=== PATIENT | male | born 1960 | race Caucasian/White ===

== ENCOUNTER 2019-01-05 11:53 | Inpatient (IN) ==
[2019-01-05] MEDS ORDERED: ASPIRIN CHEW 324 MG PO STA (12:19)
--- NOTE | 2019-01-05 12:40 | XRay Report ---
XR chest 1V portable CLINICAL HISTORY: 58 years-old Male presenting with Chest Pain. TECHNIQUE: Portable upright AP view of the chest was obtained. COMPARISON: None. FINDINGS: Cardiomediastinal silhouette normal. No focal opacity. No large effusion or pneumothorax. Osseous str uctures normal. Upper abdomen normal. IMPRESSION: 1. No acute cardiopulmonary disease. Electronically signed by: Christopher Harrington M.D. 01/05/2019 12:39 PM
[2019-01-05 12:43] LABS: Hematocrit (blood only) 41.3 % (42-52); Hemoglobin 14.7 g/dL (14.0-18.0); Mean Corpuscular Hemoglobin 31.3 pg (25-34); Mean Corpuscular Hgb Conc 35.6 g/dL (32-36); Mean Corpuscular Volume 87.9 fL (80-100); Mean Platelet Volume 11.6 fL (7.4-10.4); Platelet Count 121 K/uL (130-400); RDW Coefficient of Variation 13.6 % (11.5-14.5); White Blood Count 11.47 K/uL (4.8-10.8)
[2019-01-05 12:53] LABS: Partial Thromboplastin Ratio 0.9; Partial Thromboplastin Time 25.6 Seconds (21.0-31.0); Prothrombin Time 10.4 Seconds (9.0-12.0)
[2019-01-05 12:57] LABS: Albumin Level 3.5 gm/dl (3.4-5.0); BUN Creatinine Ratio 13.5 (10-20); Calcium 9.5 mg/dl (8.5-10.1); Creatinine Clr Calc Pharmacy 92.8 ml/min; Est GFR (Non-African American) 73.3; Potassium 4.4 mmol/L (3.5-5.1)
[2019-01-05 12:59] LABS: Albumin Globulin Ratio 0.7 (0.9-2); Bilirubin,Total 1.2 mg/dl (0.2-1); Globulin 4.9 gm/dl (2.5-4.0); Total Protein 8.4 gm/dl (6.4-8.2)
[2019-01-05 13:22] LABS: Basophils # (auto) 0.04 K/uL (0-0.2); Basophils % (auto) 0.3 %; Eosinophils # (auto) 0.02 K/uL (0-0.5); Eosinophils % (auto) 0.2 %; Immature Granulocytes # (auto) 0.02 K/uL (0.00-0.02); Immature Granulocytes % (auto) 0.2 %; Lymphocytes # (auto) 8.57 K/uL (1.2-3.4); Lymphocytes % (auto) 74.7 %; Monocytes % (auto) 5.2 %; Neutrophils # (auto) 2.22 K/uL (1.4-6.5); Neutrophils % (auto) 19.4 %; Smudge Cells Present
--- NOTE | 2019-01-05 17:51 | History & Physical Report ---
Date of Service January 05, 2019 Assessment & Plan (1) Chest pain: This is a 58-year-old male with significant past medical history of T2 DM, HTN, HLD, chronic LBBB, tobacco abuse who presents to [facility] ED secondary to chest pain x1 day. He elicits he woke up at 4 AM with stabbing left-sided chest pain that radiated to left shoulder. In ED initial EKG revealed chronic LBBB with inferior T wave inversions. Initial troponin WNL. He did receive 3.5 mg aspirin. He was asymptomatic upon arrival and continues to be without chest pain. Lab work-up was significant for mild elevated WBC 11.47 with predominance in lymphocytes, smudge cell noted and flow cytometry ordered. CMP relatively unremarkable except for hyperglycemia, T bili 1.2, NA 132. Pt with risk factors of HTN, HLD, Tobacco abuse and + FH. admit to telemetry cycle troponin, repeat ECG fasting lipid panel, A1C in a.m. Exercise stress test/echo in a.m. to r/o ischemia continue current regimen of ASA, lisinopril, coreg, statin D/C Meloxicam in setting of ACS work up (2) Diabetes: poorly controlled, last A1C 8.8 on metformin and glimepiride hold outpt meds Lantus/Novolog per protocol given risk factors and FH would recommend strict DM control consult clinical nurse educator (3) LBBB (left bundle branch block): chronic as above (4) Lymphocytosis: new abnormal CBC with elevated absolute lymphocytosis +Smudge cell present Flow cytometry pending Dr. Valles spoke to Dr. Dolye who recommends outpt HEME/ONC Follow up/Referral (5) HTN (hypertension): blood pressure controlled on coreg, lisinopril monitor (6) HLD (hyperlipidemia): continue statin fasting lipid panel in a.m. (7) Hypertriglyceridemia: Last triglyceride level 1093 11/07/18 on fenofibrate fasting lipid panel in a.m. need to stricter control (8) Tobacco abuse: smoking cessation encouraged nicotine patch ordered (9) DVT prophylaxis: SCD/TEDS Disposition: admit to PCU, discharge home when able Follow up: PCP Dr. Stockton upon discharge, would recommend MT establishment for DM control Pt seen and examined in collaboration with Dr. Valles, please see addendumm History of Present Illness Chief Complaint: Chest pain x 1 day. Primary Care Provider: Miguel Joseph MD This is a 58-year-old male with significant past medical history of T2 DM, HTN, HLD, chronic LBBB, tobacco abuse who presents to [facility] ED secondary to chest pain x1 day. He elicits he woke up at 4 AM with stabbing left-sided chest pain that radiated to left shoulder. Pain would wax and wane, "sharp jabs," worse with rolling over, 10/10 at its worst, lasted for several minutes, never had in the past, nothing made better. Symptoms resolved within a few minutes, but he was left with a dull left-sided ache. He opted to get out of bed around 6AM and walked around in hopes it would be resolved. Symptoms did not resolve; therefore he opted to not go to work and go back to bed for a few hours. He slept an additional 2 to 3 hours, woke up with continued dull ache. He called PCP who recommended to seek ED. During episodes he also felt diaphoretic and slightly short of breath which had him more concerned. He checked blood sugar which was in 250s. Typically his blood sugars are between 1 60-1 90. He further elicits over the past week he has felt, "not right." Last weekend he was very fatigued doing very little activity which was unusual for him. He de nies any recent illness, fever, chills, lightheadedness, dizziness, syncope, chest pain with exertion, shortness of breath with exertion, cough, hemoptysis, nausea, vomiting, abdominal pain, change in bowel or urinary habits. His appetite has otherwise been normal. He has been taking his medications as prescribed. He is a 1 to 2 pack/day smoker for the past 45 years. He does have significant family history of father and brother both having MIs in their 50s. In ED initial EKG revealed chronic LBBB with inferior T wave inversions. Initial troponin WNL. He did receive 3.5 mg aspirin. He was asymptomatic upon arrival and continues to be without chest pain. Lab work-up was significant for mild elevated WBC 11.47 with predominance in lymphocytes, smudge cell noted and flow cytometry ordered. CMP relatively unremarkable except for hyperglycemia, T bili 1.2, NA 132. Pt with risk factors of HTN, HLD, Tobacco abuse and + FH. Allergies Allergy/AdvReac Type Severity Reaction Status Date / Time Sulfa (Sulfonamide AdvReac Intermediate Rash Unverified 01/05/19 13:11 Antibiotics) Home Medications Home Medications Medication Instructions Recorded Confirmed Type Potassium 99mg 198 mg PO HS 01/05/19 01/05/19 History Release 1 cap PO QAM 01/05/19 01/05/19 History aspirin 81 mg PO HS 01/05/19 01/05/19 History carvedilol 12.5 mg PO BID 01/05/19 01/05/19 History cholecalciferol (vitamin D3) 2,000 unit PO QAM 01/05/19 01/05/19 History [Vitamin D3] cyanocobalamin (vitamin B-12) 1,000 mcg PO HS 01/05/19 01/05/19 History [Vitamin B-12] fenofibrate 160 mg PO QDD 01/05/19 01/05/19 History glimepiride 4 mg PO QDB 01/05/19 01/05/19 History lisinopril 10 mg PO QAM 01/05/19 01/05/19 History meloxicam 15 mg PO QAM 01/05/19 01/05/19 History metformin 1,000 mg PO BIDM 01/05/19 01/05/19 History omeprazole magnesium [Prilosec OTC] 20 mg PO QAM 01/05/19 01/05/19 History pravastatin 20 mg PO QAM 01/05/19 01/05/19 History Past Med/Surg History Medical History (Updated 01/05/19 @ 18:19 by Alysa Bradshaw PA-C) Diabetes History of melanoma Removed from ear HLD (hyperlipidemia) HTN (hypertension) Hypertriglyceridemia LBBB (left bundle branch block) Surgical History History of arthroscopy of right knee History of bursectomy History of local excision of skin lesion History of lumbar discectomy Family History (Updated 01/05/19 @ 18:00 by Alysa Bradshaw PA-C) Father Heart disease, Onset Age: 50 Brother Coronary heart disease, Onset Age: 50 Social History (Updated 01/05/19 @ 18:01 by Alysa Bradshaw PA-C) Preferred Language: Maltese Communication Ability: Effective marital status: Current Living Situation: Spouse Smoking Status: Current every day smoker Tobacco Type: cigarettes ; Years Smoked: 45 ; Cigarettes Per Day: 20-40 ; Hx Alcohol Use: No Hx Substance Use: No Review of Systems Review of Systems: All systems reviewed & are unremarkable except as noted in HPI & below Physical Exam Physical Exam: Constitutional: WD/WN, vitals as above, NAD, sitting up in bed, pleasant, conversing easily Head: Normocephalic, Atraumatic Eyes: PERRL, conjunctivae normal, anicteric sclerae ENMT: external ear and nose normal, oropharynx normal Neck: trachea midline, no thyromegaly normal visual inspection Respiratory: normal respiratory effort, lungs clear to auscultation, no wheeze, rales, rhonchi. Normal insp/exp effort, no accessory muscle use Cardiovascular: RRR, no murmur, no edema Vessels: no JVD or carotid bruit Chest: normal inspection of chest Abdomen: normal bowel sounds, soft, nontender, no hepatosplenomegaly Musculoskeletal: no cyanosis or clubbing, extremities motor strength 5/5 Skin: no rashes, warm and dry normal turgor Neurologic: PERRL, EOMI, accommodation nl, no face palsy, no dysarthria CN's II-XI intact bilaterally and moves all extremities Psychiatric: A+Ox3, euthymic affect Lymphatic: no cervical or axillary lymphadenopathy : deferred Results & Data Vital Signs (Past 12 Hours) Vital Signs Temp Pulse Pulse Resp BP BP Pulse Ox 01/05/19 17:00 84 20 124/80 97 01/05/19 15:53 86 20 107/63 01/05/19 13:53 18 114/72 96 01/05/19 12:06 36.9 C 89 20 139/79 98 Laboratory Results Short CBC 01/05/19 Range/Units 12:23 WBC 11.47 H (4.8-10.8) K/uL Hgb 14.7 (14.0-18.0) g/dL Hct 41.3 L (42-52) % Plt Count 121 L (130-400) K/uL Blood Smear Review BMP 01/05/19 12:23 Sodium 132 L Potassium 4.4 Chloride 99 Carbon Dioxide 28 BUN 15 Creatinine 1.11 Glucose 285 H Calcium 9.5 Liver Function 01/05/19 Range/Units 12:23 Total Bilirubin 1.2 H (0.2-1) mg/dl AST 22 (15-37) U/L ALT 37 (12-78) U/L Alkaline Phosphatase 101 (45-117) U/L Albumin 3.5 (3.4-5.0) gm/dl Diagnostic Findings CXR:IMPRESSION: 1. No acute cardiopulmonary disease. Medications Administered Discontinued Medications Aspirin (Aspirin) 324 mg PO NOW STA Stop: 01/05/19 12:20 Last Admin: 01/05/19 12:34 Dose: 324 mg Documented by: [id number] ECG Rate (beats per minute): 86 Findings: + LBBB and + T-wave inversion (Inferior) Code Status & VTE Plan Code Status Full Code VTE Prophylaxis Plan VTE Prophylaxis will be ordered: Yes Supervising Physician Co-Signing Physician Notes Attending addendum: The patient was seen and examined in the emergency room This is a 58-year-old male with significant past medical history of T2 DM, HTN, HLD, chronic LBBB, tobacco abuse who presents to [facility] ED secondary to chest pain x1 day. He elicits he woke up at 4 AM with stabbing left-sided chest pain that radiated to left shoulder. 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 Doyle. Flow cytometry has been sent Outpatient rheumatology appointment Agree with assessment and plan as outlined above by MAYCOL Pereira DR (1) Chest pain Chest pain type: unspecified Qualified Code(s): R07.9 - Chest pain, unspecified
--- NOTE | 2019-01-05 17:56 | Emergency Department Note ---
Entered by Miguel Varela acting as a scribe for Padilla Wilson DO History of Present Illness General Chief complaint: Chest Pain Stated complaint: CHEST PAIN Time Seen by Provider: 01/05/19 12:14 Source: patient History of Present Illness Provider complaint: chest pain Onset (ago): hour(s) 8 Location: chest and left Radiation: other (into shoulder) Pain Consistency: + intermittent Maximum Pain Intensity: 5 Quality: + sharp Exacerbated By: + movement Associated symptoms: + denies other symptoms and + cough The patient is a 58 y/o male who presents to the emergency department for evaluation of intermittent left sided sharp chest pain that woke him up from sleep 8 hours ago. The patient states that the pain comes in waves and only last for a few seconds at a time. He notes that the pain is in the ribcage area and that rest did seem to help relieve the pain. Around 3 hours ago the patient reports pain down his left arm. The patient states he has a LBBB and family history of heart disease. He notes he has a minor cough and did take his daily aspirin today. The patient denies any other symptoms. Home Medications Home Medications Medication Instructions Recorded Confirmed Type Potassium 99mg 198 mg PO HS 01/05/19 01/05/19 History Release 1 cap PO QAM 01/05/19 01/05/19 History aspirin 81 mg PO HS 01/05/19 01/05/19 History carvedilol 12.5 mg PO BID 01/05/19 01/05/19 History cholecalciferol (vitamin D3) 2,000 unit PO QAM 01/05/19 01/05/19 History [Vitamin D3] cyanocobalamin (vitamin B-12) 1,000 mcg PO HS 01/05/19 01/05/19 History [Vitamin B-12] fenofibrate 160 mg PO QDD 01/05/19 01/05/19 History glimepiride 4 mg PO QDB 01/05/19 01/05/19 History lisinopril 10 mg PO QAM 01/05/19 01/05/19 History meloxicam 15 mg PO QAM 01/05/19 01/05/19 History metformin 1,000 mg PO BIDM 01/05/19 01/05/19 History omeprazole magnesium [Prilosec OTC] 20 mg PO QAM 01/05/19 01/05/19 History pravastatin 20 mg PO QAM 01/05/19 01/05/19 History Allergies Allergy/AdvReac Type Severity Reaction Status Date / Time Sulfa (Sulfonamide AdvReac Intermediate Rash Unverified 01/05/19 13:11 Antibiotics) Past Med/Surg History Medical History (Updated 01/05/19 @ 17:04 by Miguel Varela) Diabetes LBBB (left bundle branch block) Family History Other Heart disease Social History Smoking Status: Current every day smoker Review of Systems See HPI for pertinent positives & negatives. and A total of 10 systems reviewed and were otherwise negative Physical Exam Vital Signs Vital Signs - 24 hr 01/05/19 12:06 01/05/19 12:19 01/05/19 13:53 Temperature 36.9 C Temperature Source Oral Pulse Rate 89 Pulse Rate [Left Apical] Pulse Rhythm Regular Pulse Rhythm [Left Apical] Regular Pulse Strength [Left Apical] Normal Respiratory Rate 20 18 Respiratory Effort / Characteristics Non-Labored Spontaneous Non-Labored Spontaneous Respiratory Depth Normal Normal Respiratory Pattern Regular Blood Pressure 139/79 Blood Pressure [Right Arm] 114/72 Blood Pressure Mean 99 Blood Pressure Mean [Right Arm] 86 Blood Pressure Position Sitting Blood Pressure Position [Right Arm] Lying Pulse Oximetry 98 96 Oxygen Delivery Method Room Air Room Air Room Air Sepsis Recent Fever Within 48 Hours No Sepsis Action Taken by Nursing No Action Required 01/05/19 15:53 01/05/19 17:00 Temperature Temperature Source Pulse Rate Pulse Rate [Left Apical] 86 84 Pulse Rhythm Pulse Rhythm [Left Apical] Pulse Strength [Left Apical] Respiratory Rate 20 20 Respiratory Effort / Characteristics Respiratory Depth Respiratory Pattern Blood Pressure Blood Pressure [Right Arm] 107/63 124/80 Blood Pressure Mean Blood Pressure Mean [Right Arm] 77 94 Blood Pressure Position Blood Pressure Position [Right Arm] Pulse Oximetry 97 Oxygen Delivery Method Sepsis Recent Fever Within 48 Hours Sepsis Action Taken by Nursing GENERAL: Patient is awake, alert, and in no acute distress.Patient is resting comfortably and showing no signs of anxiety EYES: The conjunctivae are clear. The pupils are round and reactive. EARS, NOSE, MOUTH AND THROAT: The nose is without any evidence of any deformity. Mucous membranes are moist.Tongue is midline NECK: The neck is nontender and supple. RESPIRATORY: Normal respiratory effort is noted. There is no evidence of wheezing rhonchi or rales to auscultation. CARDIOVASCULAR: Regular rate and rhythm noted. There no murmurs rubs or gallops normal S1 normal S2 GASTROINTESTINAL: The abdomen is soft. Bowel sounds are present in all quadrants. Abdomen is nontender. MUSCULOSKELETAL/EXTREMITIES: There is no evidence of gross deformity. Full range of motion is noted in the hips and shoulders. SKIN: There is no obvious evidence of any rash. There are no petechiae, pallor or cyanosis noted. NEUROLOGIC: Patient is awake alert and oriented x3. Course Course 1215: Past medical records reviewed. The patient was evaluated in room C05. A complete history and physical exam was performed. 1234: The patient was placed in observations status Observation note: Indication: Chest pain to rule out acute coronary syndrome Patient, with heart disease Family History, was first seen at 1215 hrs and the observation time began at 1234 hrs and was necessary in order to determine his chest pain and avoid unnecessary admission. Upon re-evaluation, 1650 hours of observation revealed that the patient should be admitted due to his risk factors and results. Heart score was calculated at bedside with patient was is a 5. 1650: I checked on the patient and updated him on his results. The patient and I discussed the treatment plan and he verbally agreed and understood. 1700: I spoke with Alysa Bradshaw for Dr. Lemos hospitalist. They will evaluate for further management. Administered Medications Discontinued Medications Aspirin (Aspirin) 324 mg PO NOW STA Stop: 01/05/19 12:20 Last Admin: 01/05/19 12:34 Dose: 324 mg Documented by: [id number] Medical Decision Making Differential Diagnosis the differential was considered includes acute myocardial infarction, acute coronary syndrome, myocarditis, pericarditis, pericardial effusions /tamponad, esophageal perforation, thoracic aortic dissection, pulmonary embolism, pneu monia, pneumothorax, pancreatitis, shingles, acute cholecystitis, perforated abdominal viscus. Medical Records Attestation: I reviewed the patient's medical records. Home Medications Current Medication List: was personally reviewed by me Laboratory Data Attestation: I reviewed the patient's lab results. Result diagrams: 01/05/19 12:23 01/05/19 12:23 Lab Results 01/05/19 01/05/19 01/05/19 Range/Units 12:23 12:23 12:23 WBC 11.47 H (4.8-10.8) K/uL RBC 4.70 (4.7-6.1) M/uL Hgb 14.7 (14.0-18.0) g/dL Hct 41.3 L (42-52) % MCV 87.9 (80-100) fL MCH 31.3 (25-34) pg MCHC 35.6 (32-36) g/dL RDW Std Deviation 44.0 (36.4-46.3) fL RDW Coeff of Rolo 13.6 (11.5-14.5) % Plt Count 121 L (130-400) K/uL MPV 11.6 H (7.4-10.4) fL Immature Gran % (Auto) 0.2 % Neut % (Auto) 19.4 % Lymph % (Auto) 74.7 % [place] % (Auto) 5.2 % Eos % (Auto) 0.2 % Baso % (Auto) 0.3 % Immature Gran # (Auto) 0.02 (0.00-0.02) K/uL Neut # (Auto) 2.22 (1.4-6.5) K/uL Lymph # (Auto) 8.57 H (1.2-3.4) K/uL [place] # (Auto) 0.60 H (0.11-0.59) K/uL Eos # (Auto) 0.02 (0-0.5) K/uL Baso # (Auto) 0.04 (0-0.2) K/uL Smudge Cells Present Blood Smear Review PT 10.4 (9.0-12.0) Seconds INR 1.0 (0.9-1.1) APTT 25.6 (21.0-31.0) Seconds PTT Ratio 0.9 Sodium 132 L (136-145) mmol/L Potassium 4.4 (3.5-5.1) mmol/L Chloride 99 (98-107) mmol/L Carbon Dioxide 28 (21-32) mmol/L Anion Gap 6.0 (3-11) BUN 15 (7-18) mg/dl Creatinine 1.11 (0.6-1.4) mg/dl Est Cr Clr Drug Dosing 92.8 ml/min Est GFR ( Amer) 85.0 Est GFR (Non-Af Amer) 73.3 BUN/Creatinine Ratio 13.5 (10-20) Glucose 285 H (70-99) mg/dl Calcium 9.5 (8.5-10.1) mg/dl Total Bilirubin 1.2 H (0.2-1) mg/dl AST 22 (15-37) U/L ALT 37 (12-78) U/L Alkaline Phosphatase 101 (45-117) U/L POC Troponin I (0-0.045) ng/ml Total Protein 8.4 H (6.4-8.2) gm/dl Albumin 3.5 (3.4-5.0) gm/dl Globulin 4.9 H (2.5-4.0) gm/dl Albumin/Globulin Ratio 0.7 L (0.9-2) Lipase 96 (73-393) U/L 01/05/ Range/Units 12:34 WBC (4.8-10.8) K/uL RBC (4.7-6.1) M/uL Hgb (14.0-18.0) g/dL Hct (42-52) % MCV (80-100) fL MCH (25-34) pg MCHC (32-36) g/dL RDW Std Deviation (36.4-46.3) fL RDW Coeff of Rolo (11.5-14.5) % Plt Count (130-400) K/uL MPV (7.4-10.4) fL Immature Gran % (Auto) % Neut % (Auto) % Lymph % (Auto) % [place] % (Auto) % Eos % (Auto) % Baso % (Auto) % Immature Gran # (Auto) (0.00-0.02) K/uL Neut # (Auto) (1.4-6.5) K/uL Lymph # (Auto) (1.2-3.4) K/uL [place] # (Auto) (0.11-0.59) K/uL Eos # (Auto) (0-0.5) K/uL Baso # (Auto) (0-0.2) K/uL Smudge Cells Blood Smear Review PT (9.0-12.0) Seconds INR (0.9-1.1) APTT (21.0-31.0) Seconds PTT Ratio Sodium (136-145) mmol/L Potassium (3.5-5.1) mmol/L Chloride (98-107) mmol/L Carbon Dioxide (21-32) mmol/L Anion Gap (3-11) BUN (7-18) mg/dl Creatinine (0.6-1.4) mg/dl Est Cr Clr Drug Dosing ml/min Est GFR ( Amer) Est GFR (Non-Af Amer) BUN/Creatinine Ratio (10-20) Glucose (70-99) mg/dl Calcium (8.5-10.1) mg/dl Total Bilirubin (0.2-1) mg/dl AST (15-37) U/L ALT (12-78) U/L Alkaline Phosphatase (45-117) U/L POC Troponin I < 0.03 (0-0.045) ng/ml Total Protein (6.4-8.2) gm/dl Albumin (3.4-5.0) gm/dl Globulin (2.5-4.0) gm/dl Albumin/Globulin Ratio (0.9-2) Lipase (73-393) U/L Imaging Data Radiologist's Impression: Radiology results as stated below per my review and the radiologist's interpretation: XR chest 1V portable CLINICAL HISTORY: 58 years-old Male presenting with Chest Pain. TECHNIQUE: Portable upright AP view of the chest was obtained. COMPARISON: None. FINDINGS: Cardiomediastinal silhouette normal. No focal opacity. No large effusion or pneumothorax. Osseous structures normal. Upper abdomen normal. IMPRESSION: 1. No acute cardiopulmonary disease. Electronically signed by: Christopher Harrington M.D. 01/05/2019 12:39 PM ECG Data Attestation: I personally reviewed and interpreted this ECG as follows: Indication: + chest pain Rate (beats per minute): 83 Rhythm: + normal sinus ECG Intervals/blocks: + Left bundle branch block ECG ST segments: no ST depression and no ST elevation ECG Findings: no PACs and no PVCs Comparison ECG Date: no prior available Additional Comments: Repeat done at 1547 Normal sinus rate of 86 No PVC or PAC LBBB No change from previous Blood Pressure Blood Pressure Findings: Elevated blood pressure Blood Pressure Disposition: Referred to patients primary care provider MDM Narrative The patient is a 58-year-old male who presented to the emergency department for an evaluation of chest pain. I discussed the patient's laboratory and radiographic studies with him. He was treated with aspirin in the emergency department. On subsequent reevaluation he was feeling much better. I discussed the patient's condition with him. I also discussed the limitations of the emergency department work-up for chest pain with him. Ultimately I felt the patient was more of a candidate for inpatient management. He did have a heart score that was elevated and does have a left bundle branch block pattern on EKG. It does appear that the EKG may be unchanged from previous. The patient also has an abnormal CBC with the possibility of leukemia versus lymphoma. I discussed the patient's condition with the on-call [facility] hospitalist group. They have agreed to evaluate the patient in the emergency department for further management disposition. Impression & Plan Chest pain, Abnormal EKG, Abnormal CBC Discharge Plan Visit Data Chief Complaint: Chest Pain Stated Complaint: CHEST PAIN ED Provider: Padilla Wilson Discharge Problem: Chest pain, Abnormal EKG, Abnormal CBC Patient Disposition: Being Evaluated by Hospitalist Forms Stand Alone Forms: Call Back Authorization, [facility] Prescriptions Prescriptions: No Action carvedilol 12.5 mg tablet 12.5 mg PO BID RF: 0 meloxicam 15 mg tablet 15 mg PO QAM RF: 0 cyanocobalamin (vitamin B-12) [Vitamin B-12] 1,000 mcg Tablet 1,000 mcg PO HS RF: 0 aspirin 81 mg Tablet,Delayed Release (Dr/Ec) 81 mg PO HS RF: 0 metformin 1,000 mg tablet 1,000 mg PO BIDM RF: 0 lisinopril 10 mg tablet 10 mg PO QAM RF: 0 glimepiride 4 mg tablet 4 mg PO QDB RF: 0 Prilosec OTC 20 mg Tablet,Delayed Release (Dr/Ec) 20 mg PO QAM RF: 0 fenofibrate 160 mg tablet 160 mg PO QDD RF: 0 cholecalciferol (vitamin D3) [Vitamin D3] 2,000 unit Tablet 2,000 unit PO QAM RF: 0 Potassium 99mg 198 mg PO HS RF: 0 Release 1 cap PO QAM RF: 0 pravastatin 20 mg tablet 20 mg PO QAM RF: 0 Referrals Referrals: Miguel Joseph MD [Primary Care Provider] - Discharge Problem: Chest pain Qualifiers: Chest pain type: unspecified Qualified Code(s): R07.9 - Chest pain, unspecified The scribe's documentation has been prepared under my direction and personally reviewed by me in its entirety. I confirm that the note above accurately reflects all work, treatment, procedures, and medical decision making performed by me.
[2019-01-05] MEDS ORDERED: ONDANSETRON INJ 2 MG/ML 2 ML VIAL IV PRN (19:06)
[2019-01-05] MEDS ORDERED: MAGNESIUM HYDROXIDE SUSP 30 ML UDC PO PRN (19:06)
[2019-01-05] MEDS ORDERED: ALUMINUM/MAGNESIUM SUSP 30 ML UDC PO PRN (19:06)
[2019-01-05] MEDS ORDERED: POLYETHYLENE (MIRALAX) 17 GM PACK PO PRN (19:06)
[2019-01-05] MEDS ORDERED: ACETAMINOPHEN 325 MG TAB PO PRN (19:06)
[2019-01-05] MEDS ORDERED: CARBOHYDRATES FOR HYPOGLYCEMIA PO PRN (19:06)
[2019-01-05] MEDS ORDERED: DEXTROSE 50% 50 ML SYRINGE IV PRN (19:06)
[2019-01-05] MEDS ORDERED: GLUCOSE 40% GEL 15 GM TUBE PO PRN (19:06)
[2019-01-05] MEDS ORDERED: GLUCAGON FOR INJ 1 MG VIAL SQ PRN (19:06)
[2019-01-05] MEDS ORDERED: NITROGLYCERIN SL 0.4 MG/TAB TAB SL PRN (19:06)
[2019-01-05] MEDS ORDERED: GLUCOSE 10 TABS/TUBE PO PRN (19:06)
[2019-01-05] MEDS: carvediloL 12.5 MG TAB PO SCH (20:55)
[2019-01-05] MEDS: CYANOCOBALAMIN 500 MCG TABLET (VITAMIN B-12) PO SCH (20:55)
[2019-01-05] MEDS: ASPIRIN 81 MG ECTAB PO SCH (20:55)
[2019-01-05] MEDS ORDERED: INSULIN GLARGINE SOLOSTAR 100 UNITS/ML 3 ML PEN SC SCH (21:00)
[2019-01-06 05:45] LABS: Hemoglobin 13.2 g/dL (14.0-18.0); Mean Corpuscular Hemoglobin 30.9 pg (25-34); Mean Corpuscular Hgb Conc 35.7 g/dL (32-36); Mean Corpuscular Volume 86.7 fL (80-100); Mean Platelet Volume 11.2 fL (7.4-10.4); Nucleated RBC # (auto) 0.07 K/uL (0-0); Nucleated RBC % (auto) 0.6 %; Platelet Count 108 K/uL (130-400); RDW Coefficient of Variation 13.8 % (11.5-14.5); RDW Standard Deviation 43.4 fL (36.4-46.3); Red Blood Count 4.27 M/uL (4.7-6.1); White Blood Count 10.59 K/uL (4.8-10.8)
[2019-01-06 06:19] LABS: Alanine Aminotransferase 29 U/L (12-78); Aspartate Aminotransferase 21 U/L (15-37); BUN Creatinine Ratio 12.7 (10-20); Blood Urea Nitrogen 12 mg/dl (7-18); Calcium 8.5 mg/dl (8.5-10.1); Carbon Dioxide 26 mmol/L (21-32); Chloride 104 mmol/L (98-107); Creatinine Clr Calc Pharmacy 105.3 ml/min; Est GFR (Non-African American) 86.3; Glucose 251 mg/dl (70-99); Potassium 4.1 mmol/L (3.5-5.1); Sodium 134 mmol/L (136-145)
[2019-01-06 06:22] LABS: Albumin Globulin Ratio 0.7 (0.9-2); Alkaline Phosphatase 90 U/L (45-117); Bilirubin,Total 1.1 mg/dl (0.2-1); Chol HDL Ratio 8; Cholesterol 63 mg/dl (0-200); Globulin 4.1 gm/dl (2.5-4.0); HDL Cholesterol 8 mg/dl; Total Protein 7.1 gm/dl (6.4-8.2); Triglycerides 302 mg/dl (0-150); VLDL Cholesterol 60 mg/dl
[2019-01-06] MEDS ORDERED: GLUCOSE 40% GEL 15 GM TUBE PO PRN (06:46)
[2019-01-06] MEDS ORDERED: GLUCAGON FOR INJ 1 MG VIAL SQ PRN (06:46)
[2019-01-06] MEDS ORDERED: GLUCOSE 10 TABS/TUBE PO PRN (06:46)
[2019-01-06] MEDS ORDERED: CARBOHYDRATES FOR HYPOGLYCEMIA PO PRN (06:46)
[2019-01-06] MEDS ORDERED: DEXTROSE 50% 50 ML SYRINGE IV PRN (06:46)
[2019-01-06] MEDS ORDERED: INSULIN GLARGINE SOLOSTAR 100 UNITS/ML 3 ML PEN SC SCH ×2 (06:47→21:00)
[2019-01-06] MEDS ORDERED: INSULIN GLARGINE SOLOSTAR 100 UNITS/ML 3 ML PEN SC STA (06:47)
[2019-01-06 06:49] LABS: Estimated Average Glucose 249 mg/dl; Hemoglobin A1C 10.3 % (4.5-5.6)
[2019-01-06 07:12] LABS: Basophils # (auto) 0.05 K/uL (0-0.2); Basophils % (auto) 0.5 %; Eosinophils # (auto) 0.03 K/uL (0-0.5); Eosinophils % (auto) 0.3 %; Immature Granulocytes # (auto) 0.04 K/uL (0.00-0.02); Immature Granulocytes % (auto) 0.4 %; Lymphocytes # (auto) 7.91 K/uL (1.2-3.4); Lymphocytes % (auto) 74.7 %; Monocytes # (auto) 0.69 K/uL (0.11-0.59); Monocytes % (auto) 6.5 %; Neutrophils # (auto) 1.87 K/uL (1.4-6.5); Neutrophils % (auto) 17.6 %; Smudge Cells Present
[2019-01-06] MEDS: INSULIN ASPART 100 UNITS/ML 3 ML PEN SC SCH ×4 (08:01→21:28)
[2019-01-06] MEDS: carvediloL 12.5 MG TAB PO SCH ×2 (08:06→21:25)
[2019-01-06] MEDS: PANTOprazole 40 MG TAB PO SCH (08:06)
[2019-01-06] MEDS: LISINOPRIL 10 MG TAB PO SCH (08:07)
[2019-01-06] MEDS: CHOLECALCIFEROL 1,000 UNITS TAB PO SCH (08:07)
[2019-01-06] MEDS ORDERED: PRAVASTATIN SOD 20 MG TAB PO SCH (09:00)
[2019-01-06] MEDS ORDERED: PERFLUTREN LIPID MICROSPHERE (DEFINITY) IV ONE (09:15)
--- NOTE | 2019-01-06 10:13 | Hospitalist Progress Note ---
Date of Service January 06, 2019 Assessment & Plan (1) Chest pain: This is a 58 y/o gentleman with significant past medical history of DM type 2, HTN, HLD, chronic LBBB, tobacco abuse who presents to [facility] ED secondary to chest pain x1 day. He woke up at 4 AM with stabbing left-sided chest pain that radiated to left shoulder. In ED initial EKG revealed chronic LBBB with inferior T wave inversions. Troponin x3 - negative. He received aspirin in ED. He was asymptomatic upon arrival and continues to be without chest pain. Lab work-up was significant for mild elevated WBC 11.47 with predominance in lymphocytes, smudge cell noted and flow cytometry ordered. CMP relatively unremarkable except for hyperglycemia, T bili 1.2, NA 132. Pt with risk factors of HTN, HLD, Tobacco abuse and + FH. Patient was admitted to telemetry and observed overnight, he had no more episodes of chest pain overnight and feeling well this morning. He had echocardiogram this morning, which was abnormal and triggered cardiology consultation/cardiac cath this afternoon. There is a lesion in the mid LAD however this does not appear to be an acute ischemic event and was not intervened upon. Cardiology office will call to arrange for outpatient cardiac rehab and outpatient follow-up in 1 month. An echocardiogram will be repeated in 3 months. Continue current regimen of ASA, lisinopril, Coreg, statin (would recommend to switch to high intensity statin however patient says that in the past he could not tolerate it/had severe joint pain) Multiple risk factors for CAD-besides family history, currently poorly controlled diabetes mellitus type 2, hyperlipidemia, active tobacco user, discussed in more detail below (2) Diabetes: - poorly controlled, HbA1c 10.3% (12/06) - on metformin and glimepiride at home - holding outpt meds - Lantus/Novolog per protocol - given risk factors and FH would recommend strict DM control - consulted public health educator, will also involve pharm for glycemic mngmt (3) LBBB (left bundle branch block): chronic, as above Given LBBB, and cardiomyopathy picture on echocardiogram, cardiology was consulted and patient underwent cardiac catheterization today (01/06) (4) Lymphocytosis: new abnormal CBC with elevated absolute lymphocytosis +Smudge cell present Flow cytometry pending Dr. Valles spoke to Dr. Doyle who recommends outpt HEME/ONC Follow up/Referral (5) HTN (hypertension): blood pressure controlled on coreg, lisinopril monitor (6) HLD (hyperlipidemia): - continue home statin - Fasting lipid panel in a.m. - triglycerides 300, cholesterol 63, VLDL 60, HDL 8 - Discussed hyperlipidemia management, patient says that when he was on high intensity statin, he experienced severe joint pain and could not tolerate it (7) Hypertriglyceridemia: - Triglyceride level 1093 on 11/07/18 -Repeated fasting lipid panel this morning, January 06, triglycerides were 300, cholesterol 63, HDL 8 - on fenofibrate and pravastatin 20 mg (reports that he could not tolerate high intensity statin due to joint pain) (8) Tobacco abuse: -Active smoker, says he plans to quit now after being in the hospital, currently does not feel he needs any supplements or medication to help him quit smoking -smoking cessation encouraged and nicotine patch ordered (9) DVT prophylaxis: SCD/TEDS Disposition: admit to PCU, discharge home when able Follow up: PCP Dr. Stockton upon discharge, would recommend [facility] establishment for DM control Subjective No acute events overnight. This morning patient has no chest pain, no shortness of breath, feels well and actually inquiring about going home. He also denies any fevers, chills, palpitations, abdominal pain, nausea or vomiting. Patient has multiple risk factors for coronary disease, and discussed in detail how to modify these including smoking cessation, diabetes control, hyperlipidemia management. Update: Was called by Dr. Casas, from cardiology, regarding abnormal echocardiogram that patient had earlier today. Discussed with the patient need for cardiac cath and further cardiology work-up. Patient agrees to proceed with cardiac cath. Review of Systems Review of Systems: All systems reviewed & are unremarkable except as noted in HPI & below Constitutional: no fever, no chills and no fatigue Respiratory: no cough, no dyspnea and no pain on inspiration Cardiovascular: no chest pain, no dyspnea on exertion, no palpitations and no edema Gastrointestinal: no abdominal pain, no early satiety, no nausea and no vomiting Physical Exam Physical Exam: Constitutional: WD/WN male in NAD, sitting up in bed, comfortable Head: Normocephalic, Atraumatic Eyes: PERRL, conjunctivae normal, anicteric sclerae ENMT: external ear and nose normal, oropharynx normal Neck: trachea midline, normal visual inspection Respiratory: normal respiratory effort, lungs clear to auscultation, no wheeze, rales, rhonchi. Normal insp/exp effort, no accessory muscle use Cardiovascular: RRR, no murmur, no edema Vessels: no JVD or carotid bruit Chest: normal inspection of chest Abdomen: normal bowel sounds, soft, nontender, nondistended, no guarding Musculoskeletal: no cyanosis or clubbing, extremities motor strength 5/5 Skin: no rashes, warm and dry normal turgor Neurologic: PERRL, EOMI, accommodation nl, no face palsy, no dysarthria CN's II-XI intact bilaterally and moves all extremities Psychiatric: A+Ox3, euthymic affect Lymphatic: no cervical or axillary lymphadenopathy Results & Data Vital Signs (Past 12 Hours) Vital Signs Temp Pulse Resp BP Pulse Ox 01/06/19 07:11 36.7 C 83 18 120/69 95 01/06/19 03:49 37 C 74 18 107/68 97 01/05/19 23:38 37.3 C 83 18 102/61 96 Laboratory Results 01/06/19 01/06/19 01/06/19 Range/Units 07:31 07:29 07:29 WBC (4.8-10.8) K/uL RBC (4.7-6.1) M/uL Hgb (14.0-18.0) g/dL Hct (42-52) % MCV (80-100) fL MCH (25-34) pg MCHC (32-36) g/dL RDW Std Deviation (36.4-46.3) fL RDW Coeff of Rolo (11.5-14.5) % Plt Count (130-400) K/uL MPV (7.4-10.4) fL Immature Gran % (Auto) % Neut % (Auto) % Lymph % (Auto) % Sharp % (Auto) % Eos % (Auto) % Baso % (Auto) % Immature Gran # (Auto) (0.00-0.02) K/uL Neut # (Auto) (1.4-6.5) K/uL Lymph # (Auto) (1.2-3.4) K/uL Sharp # (Auto) (0.11-0.59) K/uL Eos # (Auto) (0-0.5) K/uL Baso # (Auto) (0-0.2) K/uL Absolute Nucleated RBC (0-0) K/uL Nucleated RBC % (auto) % Smudge Cells Blood Smear Review Peripher Smr Path Cons PT (9.0-12.0) Seconds INR (0.9-1.1) APTT (21.0-31.0) Seconds PTT Ratio Sodium (136-145) mmol/L Potassium (3.5-5.1) mmol/L Chloride (98-107) mmol/L Carbon Dioxide (21-32) mmol/L Anion Gap (3-11) BUN (7-18) mg/dl Creatinine (0.6-1.4) mg/dl Est Cr Clr Drug Dosing ml/min Est GFR ( Amer) Est GFR (Non-Af Amer) BUN/Creatinine Ratio (10-20) Glucose (70-99) mg/dl POC Glucose 284 H 280 H 314 H* (70-99) Estimat Average Glucose mg/dl Hemoglobin A1c (4.5-5.6) % Calcium (8.5-10.1) mg/dl Total Bilirubin (0.2-1) mg/dl AST (15-37) U/L ALT (12-78) U/L Alkaline Phosphatase (45-117) U/L POC Troponin I (0-0.045) ng/ml Troponin I (0-0.045) ng/ml Total Protein (6.4-8.2) gm/dl Albumin (3.4-5.0) gm/dl Globulin (2.5-4.0) gm/dl Albumin/Globulin Ratio (0.9-2) Triglycerides (0-150) mg/dl Cholesterol (0-200) mg/dl LDL Cholesterol, Calc VLDL Cholesterol, Calc mg/dl HDL Cholesterol mg/dl Cholesterol/HDL Ratio Lipase (73-393) U/L Hepatitis C Ab Screen (Neg) Flow Cytometry Comment 01/06/19 01/06/19 01/06/19 Range/Units 06:13 06:12 06:10 WBC (4.8-10.8) K/uL RBC (4.7-6.1) M/uL Hgb (14.0-18.0) g/dL Hct (42-52) % MCV (80-100) fL MCH (25-34) pg MCHC (32-36) g/dL RDW Std Deviation (36.4-46.3) fL RDW Coeff of Rolo (11.5-14.5) % Plt Count (130-400) K/uL MPV (7.4-10.4) fL Immature Gran % (Auto) % Neut % (Auto) % Lymph % (Auto) % Sharp % (Auto) % Eos % (Auto) % Baso % (Auto) % Immature Gran # (Auto) (0.00-0.02) K/uL Neut # (Auto) (1.4-6.5) K/uL Lymph # (Auto) (1.2-3.4) K/uL Sharp # (Auto) (0.11-0.59) K/uL Eos # (Auto) (0-0.5) K/uL Baso # (Auto) (0-0.2) K/uL Absolute Nucleated RBC (0-0) K/uL Nucleated RBC % (auto) % Smudge Cells Blood Smear Review Peripher Smr Path Cons PT (9.0-12.0) Seconds INR (0.9-1.1) APTT (21.0-31.0) Seconds PTT Ratio Sodium (136-145) mmol/L Potassium (3.5-5.1) mmol/L Chloride (98-107) mmol/L Carbon Dioxide (21-32) mmol/L Anion Gap (3-11) BUN (7-18) mg/dl Creatinine (0.6-1.4) mg/dl Est Cr Clr Drug Dosing ml/min Est GFR ( Amer) Est GFR (Non-Af Amer) BUN/Creatinine Ratio (10-20) Glucose (70-99) mg/dl POC Glucose 291 H 270 H 308 H* (70-99) Estimat Average Glucose mg/dl Hemoglobin A1c (4.5-5.6) % Calcium (8.5-10.1) mg/dl Total Bilirubin (0.2-1) mg/dl AST (15-37) U/L ALT (12-78) U/L Alkaline Phosphatase (45-117) U/L POC Troponin I (0-0.045) ng/ml Troponin I (0-0.045) ng/ml Total Protein (6.4-8.2) gm/dl Albumin (3.4-5.0) gm/dl Globulin (2.5-4.0) gm/dl Albumin/Globulin Ratio (0.9-2) Triglycerides (0-150) mg/dl Cholesterol (0-200) mg/dl LDL Cholesterol, Calc VLDL Cholesterol, Calc mg/dl HDL Cholesterol mg/dl Cholesterol/HDL Ratio Lipase (73-393) U/L Hepatitis C Ab Screen (Neg) Flow Cytometry Comment 01/06/19 01/06/19 01/06/19 Range/Units 05:30 05:30 05:30 WBC (4.8-10.8) K/uL RBC (4.7-6.1) M/uL Hgb (14.0-18.0) g/dL Hct (42-52) % MCV (80-100) fL MCH (25-34) pg MCHC (32-36) g/dL RDW Std Deviation (36.4-46.3) fL RDW Coeff of Rolo (11.5-14.5) % Plt Count (130-400) K/uL MPV (7.4-10.4) fL Immature Gran % (Auto) % Neut % (Auto) % Lymph % (Auto) % Sharp % (Auto) % Eos % (Auto) % Baso % (Auto) % Immature Gran # (Auto) (0.00-0.02) K/uL Neut # (Auto) (1.4-6.5) K/uL Lymph # (Auto) (1.2-3.4) K/uL Sharp # (Auto) (0.11-0.59) K/uL Eos # (Auto) (0-0.5) K/uL Baso # (Auto) (0-0.2) K/uL Absolute Nucleated RBC (0-0) K/uL Nucleated RBC % (auto) % Smudge Cells Blood Smear Review Peripher Smr Path Cons PT (9.0-12.0) Seconds INR (0.9-1.1) APTT (21.0-31.0) Seconds PTT Ratio Sodium 134 L (136-145) mmol/L Potassium 4.1 (3.5-5.1) mmol/L Chloride 104 (98-107) mmol/L Carbon Dioxide 26 (21-32) mmol/L Anion Gap 4.0 (3-11) BUN 12 (7-18) mg/dl Creatinine 0.97 (0.6-1.4) mg/dl Est Cr Clr Drug Dosing 105.3 ml/min Est GFR ( Amer) 100.0 Est GFR (Non-Af Amer) 86.3 BUN/Creatinine Ratio 12.7 (10-20) Glucose 251 H (70-99) mg/dl POC Glucose (70-99) Estimat Average Glucose 249 mg/dl Hemoglobin A1c 10.3 H (4.5-5.6) % Calcium 8.5 (8.5-10.1) mg/dl Total Bilirubin 1.1 H (0.2-1) mg/dl AST 21 (15-37) U/L ALT 29 (12-78) U/L Alkaline Phosphatase 90 (45-117) U/L POC Troponin I (0-0.045) ng/ml Troponin I (0-0.045) ng/ml Total Protein 7.1 (6.4-8.2) gm/dl Albumin 3.0 L (3.4-5.0) gm/dl Globulin 4.1 H (2.5-4.0) gm/dl Albumin/Globulin Ratio 0.7 L (0.9-2) Triglycerides 302 H (0-150) mg/dl Cholesterol 63 (0-200) mg/dl LDL Cholesterol, Calc TNP VLDL Cholesterol, Calc 60 mg/dl HDL Cholesterol 8 mg/dl Cholesterol/HDL Ratio 8 Lipase (73-393) U/L Hepatitis C Ab Screen Neg (Neg) Flow Cytometry Comment 01/06/19 01/06/19 01/05/19 Range/Units 05:30 00:14 19:34 WBC 10.59 (4.8-10.8) K/uL RBC 4.27 L (4.7-6.1) M/uL Hgb 13.2 L (14.0-18.0) g/dL Hct 37.0 L (42-52) % MCV 86.7 (80-100) fL MCH 30.9 (25-34) pg MCHC 35.7 (32-36) g/dL RDW Std Deviation 43.4 (36.4-46.3) fL RDW Coeff of Rolo 13.8 (11.5-14.5) % Plt Count 108 L (130-400) K/uL MPV 11.2 H (7.4-10.4) fL Immature Gran % (Auto) 0.4 % Neut % (Auto) 17.6 % Lymph % (Auto) 74.7 % Sharp % (Auto) 6.5 % Eos % (Auto) 0.3 % Baso % (Auto) 0.5 % Immature Gran # (Auto) 0.04 H (0.00-0.02) K/uL Neut # (Auto) 1.87 (1.4-6.5) K/uL Lymph # (Auto) 7.91 H (1.2-3.4) K/uL Sharp # (Auto) 0.69 H (0.11-0.59) K/uL Eos # (Auto) 0.03 (0-0.5) K/uL Baso # (Auto) 0.05 (0-0.2) K/uL Absolute Nucleated RBC 0.07 H (0-0) K/uL Nucleated RBC % (auto) 0.6 % Smudge Cells Present Blood Smear Review Peripher Smr Path Cons Pending PT (9.0-12.0) Seconds INR (0.9-1.1) APTT (21.0-31.0) Seconds PTT Ratio Sodium (136-145) mmol/L Potassium (3.5-5.1) mmol/L Chloride (98-107) mmol/L Carbon Dioxide (21-32) mmol/L Anion Gap (3-11) BUN (7-18) mg/dl Creatinine (0.6-1.4) mg/dl Est Cr Clr Drug Dosing ml/min Est GFR ( Amer) Est GFR (Non-Af Amer) BUN/Creatinine Ratio (10-20) Glucose (70-99) mg/dl POC Glucose (70-99) Estimat Average Glucose mg/dl Hemoglobin A1c (4.5-5.6) % Calcium (8.5-10.1) mg/dl Total Bilirubin (0.2-1) mg/dl AST (15-37) U/L ALT (12-78) U/L Alkaline Phosphatase (45-117) U/L POC Troponin I (0-0.045) ng/ml Troponin I < 0.015 < 0.015 (0-0.045) ng/ml Total Protein (6.4-8.2) gm/dl Albumin (3.4-5.0) gm/dl Globulin (2.5-4.0) gm/dl Albumin/Globulin Ratio (0.9-2) Triglycerides (0-150) mg/dl Cholesterol (0-200) mg/dl LDL Cholesterol, Calc VLDL Cholesterol, Calc mg/dl HDL Cholesterol mg/dl Cholesterol/HDL Ratio Lipase (73-393) U/L Hepatitis C Ab Screen (Neg) Flow Cytometry Comment 01/05/19 01/05/19 01/05/19 Range/Units 19:13 12:34 12:23 WBC (4.8-10.8) K/uL RBC (4.7-6.1) M/uL Hgb (14.0-18.0) g/dL Hct (42-52) % MCV (80-100) fL MCH (25-34) pg MCHC (32-36) g/dL RDW Std Deviation (36.4-46.3) fL RDW Coeff of Rolo (11.5-14.5) % Plt Count (130-400) K/uL MPV (7.4-10.4) fL Immature Gran % (Auto) % Neut % (Auto) % Lymph % (Auto) % Sharp % (Auto) % Eos % (Auto) % Baso % (Auto) % Immature Gran # (Auto) (0.00-0.02) K/uL Neut # (Auto) (1.4-6.5) K/uL Lymph # (Auto) (1.2-3.4) K/uL Sharp # (Auto) (0.11-0.59) K/uL Eos # (Auto) (0-0.5) K/uL Baso # (Auto) (0-0.2) K/uL Absolute Nucleated RBC (0-0) K/uL Nucleated RBC % (auto) % Smudge Cells Blood Smear Review Peripher Smr Path Cons PT (9.0-12.0) Seconds INR (0.9-1.1) APTT (21.0-31.0) Seconds PTT Ratio Sodium (136-145) mmol/L Potassium (3.5-5.1) mmol/L Chloride (98-107) mmol/L Carbon Dioxide (21-32) mmol/L Anion Gap (3-11) BUN (7-18) mg/dl Creatinine (0.6-1.4) mg/dl Est Cr Clr Drug Dosing ml/min Est GFR ( Amer) Est GFR (Non-Af Amer) BUN/Creatinine Ratio (10-20) Glucose (70-99) mg/dl POC Glucose 249 H (70-99) Estimat Average Glucose mg/dl Hemoglobin A1c (4.5-5.6) % Calcium (8.5-10.1) mg/dl Total Bilirubin (0.2-1) mg/dl AST (15-37) U/L ALT (12-78) U/L Alkaline Phosphatase (45-117) U/L POC Troponin I < 0.03 (0-0.045) ng/ml Troponin I (0-0.045) ng/ml Total Protein (6.4-8.2) gm/dl Albumin (3.4-5.0) gm/dl Globulin (2.5-4.0) gm/dl Albumin/Globulin Ratio (0.9-2) Triglycerides (0-150) mg/dl Cholesterol (0-200) mg/dl LDL Cholesterol, Calc VLDL Cholesterol, Calc mg/dl HDL Cholesterol mg/dl Cholesterol/HDL Ratio Lipase (73-393) U/L Hepatitis C Ab Screen (Neg) Flow Cytometry Comment Pending 01/05/19 01/05/19 01/05/19 Range/Units 12:23 12:23 12:23 WBC 11.47 H (4.8-10.8) K/uL RBC 4.70 (4.7-6.1) M/uL Hgb 14.7 (14.0-18.0) g/dL Hct 41.3 L (42-52) % MCV 87.9 (80-100) fL MCH 31.3 (25-34) pg MCHC 35.6 (32-36) g/dL RDW Std Deviation 44.0 (36.4-46.3) fL RDW Coeff of Rolo 13.6 (11.5-14.5) % Plt Count 121 L (130-400) K/uL MPV 11.6 H (7.4-10.4) fL Immature Gran % (Auto) 0.2 % Neut % (Auto) 19.4 % Lymph % (Auto) 74.7 % Sharp % (Auto) 5.2 % Eos % (Auto) 0.2 % Baso % (Auto) 0.3 % Immature Gran # (Auto) 0.02 (0.00-0.02) K/uL Neut # (Auto) 2.22 (1.4-6.5) K/uL Lymph # (Auto) 8.57 H (1.2-3.4) K/uL Sharp # (Auto) 0.60 H (0.11-0.59) K/uL Eos # (Auto) 0.02 (0-0.5) K/uL Baso # (Auto) 0.04 (0-0.2) K/uL Absolute Nucleated RBC (0-0) K/uL Nucleated RBC % (auto) % Smudge Cells Present Blood Smear Review Peripher Smr Path Cons PT 10.4 (9.0-12.0) Seconds INR 1.0 (0.9-1.1) APTT 25.6 (21.0-31.0) Seconds PTT Ratio 0.9 Sodium 132 L (136-145) mmol/L Potassium 4.4 (3.5-5.1) mmol/L Chloride 99 (98-107) mmol/L Carbon Dioxide 28 (21-32) mmol/L Anion Gap 6.0 (3-11) BUN 15 (7-18) mg/dl Creatinine 1.11 (0.6-1.4) mg/dl Est Cr Clr Drug Dosing 92.8 ml/min Est GFR ( Amer) 85.0 Est GFR (Non-Af Amer) 73.3 BUN/Creatinine Ratio 13.5 (10-20) Glucose 285 H (70-99) mg/dl POC Glucose (70-99) Estimat Average Glucose mg/dl Hemoglobin A1c (4.5-5.6) % Calcium 9.5 (8.5-10.1) mg/dl Total Bilirubin 1.2 H (0.2-1) mg/dl AST 22 (15-37) U/L ALT 37 (12-78) U/L Alkaline Phosphatase 101 (45-117) U/L POC Troponin I (0-0.045) ng/ml Troponin I (0-0.045) ng/ml Total Protein 8.4 H (6.4-8.2) gm/dl Albumin 3.5 (3.4-5.0) gm/dl Globulin 4.9 H (2.5-4.0) gm/dl Albumin/Globulin Ratio 0.7 L (0.9-2) Triglycerides (0-150) mg/dl Cholesterol (0-200) mg/dl LDL Cholesterol, Calc VLDL Cholesterol, Calc mg/dl HDL Cholesterol mg/dl Cholesterol/HDL Ratio Lipase 96 (73-393) U/L Hepatitis C Ab Screen (Neg) Flow Cytometry Comment Medications Administered Current Inpatient Medications Acetaminophen (Tylenol) 650 mg PO Q4H PRN PRN Reason: Pain or Fever Stop: 02/04/19 19:05 Al Hydrox/Mg Hydrox/Simethicone (Maalox) 15 ml PO Q4H PRN PRN Reason: Dyspepsia Stop: 02/04/19 19:05 Aspirin (Ecotrin Ectab) 81 mg PO HS [facility] Stop: 02/04/19 20:59 Last Admin: 01/05/19 20:55 Dose: 81 mg Documented by: Carvedilol (Coreg) 12.5 mg PO BID [facility] Stop: 02/04/19 20:59 Last Admin: 01/06/19 08:06 Dose: 12.5 mg Documented by: Cyanocobalamin (Vitamin B-12) 1,000 mcg PO HS [facility]RA Stop: 02/04/19 20:59 Last Admin: 01/05/19 20:55 Dose: 1,000 mcg Documented by: Dextrose (Dextrose 50%) 25 - 50 ml IV UD PRN; Protocol PRN Reason: Hypoglycemia Protocol Stop: 02/04/19 19:05 Fenofibrate (Tricor) 145 mg PO QDD [facility]RA Stop: 02/05/19 16:29 Glucagon (Glucagen) 1 mg SQ UD PRN; Protocol PRN Reason: Hypoglycemia Protocol Stop: 02/04/19 19:05 Glucose (Dex4 Glucose) 4 - 8 tabs PO UD PRN; Protocol PRN Reason: Hypoglycemia Protocol Stop: 02/04/19 19:05 Glucose (Glucose 40%) 15 - 30 gm PO UD PRN; Protocol PRN Reason: Hypoglycemia Protocol Stop: 02/04/19 19:05 Insulin Aspart (Novolog Flexpen) 0 units SC ACHS [facility] Stop: 02/05/19 06:49 Last Admin: 01/06/19 08:01 Dose: 5 units Documented by: Insulin Glargine (Lantus Solostar Pen) 0 units SC BID [facility]; Protocol Stop: 02/05/19 20:59 Lisinopril (Zestril) 10 mg PO [facility] Stop: 02/05/19 08:59 Last Admin: 01/06/19 08:07 Dose: 10 mg Documented by: Magnesium Hydroxide (Milk Of Magnesia) 30 ml PO Q12H PRN PRN Reason: Constipation Stop: 02/04/19 19:05 Miscellaneous (Carbohydrates For Hypoglycemia) 15 - 30 gm PO UD PRN PRN Reason: Hypoglycemia Protocol Stop: 02/04/19 19:05 Miscellaneous (Remove Nicoderm Patch) 1 ea N/A HS PRN PRN Reason: Insomnia Stop: 02/05/19 08:58 Nicotine (Nicoderm Cq) 14 mg TD [facility] Stop: 02/05/19 08:59 Nitroglycerin (Nitrostat) 0.4 mg SL UD PRN PRN Reason: Chest Pain Stop: 02/04/19 19:05 Ondansetron HCl (Zofran) 4 mg IV Q6H PRN PRN Reason: Nausea Stop: 02/04/19 19:05 Pantoprazole Sodium (Protonix) 40 mg PO [facility] Stop: 02/05/19 08:59 Last Admin: 01/06/19 08:06 Dose: 40 mg Documented by: Polyethylene Glycol (Miralax Powder Packet) 17 gm PO DAILY PRN PRN Reason: Constipation Stop: 02/04/19 19:05 Pravastatin Sodium (Pravachol) 20 mg PO [facility] Stop: 02/05/19 08:59 Last Admin: 01/06/19 08:07 Dose: 20 mg Documented by: Vitamin D (Vitamin D3) 2,000 units PO [facility] Stop: 02/05/19 08:59 Last Admin: 01/06/19 08:07 Dose: 2,000 units Documented by: (1) Chest pain Chest pain type: unspecified Qualified Code(s): R07.9 - Chest pain, unspecified
[2019-01-06] MEDS: NICOTINE 14 MG/24 HR PATCH TD SCH (10:48)
[2019-01-06] MEDS ORDERED: HEPARIN (PORCINE) 1000 UNIT/ML 10 ML (CATH LAB USE ONLY) ONE (14:25)
[2019-01-06] MEDS ORDERED: NiCARDipine HCL INJ 2.5 MG/ML 10 ML AMP ONE (14:26)
[2019-01-06] MEDS ORDERED: NITROGLYCERIN/D5W 100MCG/ML 20ML SYR ONE (14:26)
[2019-01-06] MEDS ORDERED: MIDAZOLAM HCL 1 MG/ML 2ML VIAL ONE (14:26)
[2019-01-06] MEDS ORDERED: fentaNYL citrate 100 MCG/2 ML VIAL ONE (14:26)
--- NOTE | 2019-01-06 14:40 | Cardiology Consultation ---
Date of Consultation January 06, 2019 Assessment & Plan (1) Chest pain: His presenting symptom of chest pain is very atypical for ischemia I am more concerned however about the episode of fatigue he had several days ago. Echocardiogram shows a significant cardiomyopathy but his troponins are unremarkable would suggest some chronicity if this was an ischemic event. I believe the most prudent course of action at this point is for direct visualization of his coronary anatomy through cardiac catheterization. The procedure along with the risks, benefits and alternatives were discussed with him his in great detail and they agree that they like to proceed with the procedure. Further details to follow results of the catheterization. Unfortunately, he does have every risk factor possible for coronary artery disease along with the coronary artery disease risk equivalent of diabetes, which is poorly controlled. (2) Cardiomyopathy: Newly discovered For cardiac catheterization as above (3) LBBB (left bundle branch block): Chronic with a reportedly nonischemic work-up 20 years ago (4) Tobacco abuse: (5) Diabetes: Poorly controlled Will need diabetic teaching prior to discharge along with titration of his medications which I will defer to the expertise of the primary team. History of Present Illness Reason for Consultation: chest pain Requesting Physician: Dr. Keen Attending Physician: Yariel Keen MD History of Present Illness It was my pleasure to see Mr. Bustos in consultation today January 06, 2019. He is a very pleasant 58-year-old gentleman who does not normally follow with a operating room surgical technologist. He presented to [facility] after waking on January 05 with sharp chest pains. He states he woke up in the morning was getting ready for work concerned developed sharp stabbing pains across his left precordium. He notes these were very fleeting in nature however soon thereafter he started developing an ache in his left shoulder that is rather significant. He then went to lay down take a nap when he got up though the discomfort persisted he was then suggested by his he contact his primary care physician who recommend he go to the emergency department. More significantly though approximately 1 week ago he notes that he was shopping at [employer] and became significantly fatigued. He states he did have the energy to move and walk across the store was a significant burden for him. He did not have any chest pain or shortness of breath at that time just overwhelming fatigue. The fatigue lasted for approximately 2 days and then resolved. He does carry history of chronic left bundle branch block and he states that about 20 years ago he underwent stress testing with a operating room surgical technologist in [place] for the left bundle and was told that there is no ischemia but he has not seen a operating room surgical technologist nor had any cardiac testing since then. Allergies Allergy/AdvReac Type Severity Reaction Status Date / Time Sulfa (Sulfonamide AdvReac Intermediate Rash Unverified 01/05/19 13:11 Antibiotics) Home Medications Home Medications Medication Instructions Recorded Confirmed Type Potassium 99mg 198 mg PO HS 01/05/19 01/05/19 History Release 1 cap PO QAM 01/05/19 01/05/19 History aspirin 81 mg PO HS 01/05/19 01/05/19 History carvedilol 12.5 mg PO BID 01/05/19 01/05/19 History cholecalciferol (vitamin D3) 2,000 unit PO QAM 01/05/19 01/05/19 History [Vitamin D3] cyanocobalamin (vitamin B-12) 1,000 mcg PO HS 01/05/19 01/05/19 History [Vitamin B-12] fenofibrate 160 mg PO QDD 01/05/19 01/05/19 History glimepiride 4 mg PO QDB 01/05/19 01/05/19 History lisinopril 10 mg PO QAM 01/05/19 01/05/19 History meloxicam 15 mg PO QAM 01/05/19 01/05/19 History metformin 1,000 mg PO BIDM 01/05/19 01/05/19 History omeprazole magnesium [Prilosec OTC] 20 mg PO QAM 01/05/19 01/05/19 History pravastatin 20 mg PO QAM 01/05/19 01/05/19 History Patient History Medical History Diabetes History of melanoma Removed from ear HLD (hyperlipidemia) HTN (hypertension) Hypertriglyceridemia LBBB (left bundle branch block) Surgical History History of arthroscopy of right knee History of bursectomy History of local excision of skin lesion History of lumbar discectomy Family History Father Heart disease, Onset Age: 50 Brother Coronary heart disease, Onset Age: 50 Social History Preferred Language: Sammarinese Communication Ability: Effective 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 No acute distress. HEENT: Normocephalic, atraumatic. Pupils equal, round and reactive to light and accommodation. Extraocular muscles are intact. Anicteric sclera. Moist mucous membranes. Neck: No JVD. No bruit. Cardiovascular: Regular. Positive S-4. Normal S-1 and S-2. No S-3. No murmurs or rubs. Pulmonary: Clear to auscultation B/L. No rales, rhonchi or wheezing Abdomen: Bowel sounds x 4, soft. No rebound, guarding or tenderness. No organomegaly. Extremities: No clubbing, cyanosis or edema. +2 pedal pulses bilaterally. Skin: Warm and dry. Results & Data Vital Signs (Past 12 Hours) Vital Signs Temp Pulse Pulse Resp BP Pulse Ox 01/06/19 11:17 81 01/06/19 11:01 36.7 C 78 18 100/65 96 01/06/19 07:11 36.7 C 83 18 120/69 95 01/06/19 03:49 37 C 74 18 107/68 97 Laboratory Results Laboratory Results - last 24 hr 01/05/19 01/05/19 01/05/19 12:23 19:13 19:34 WBC RBC Hgb Hct MCV MCH MCHC RDW Std Deviation RDW Coeff of Rolo Plt Count MPV Immature Gran % (Auto) Neut % (Auto) Lymph % (Auto) [place] % (Auto) Eos % (Auto) Baso % (Auto) Immature Gran # (Auto) Neut # (Auto) Lymph # (Auto) [place] # (Auto) Eos # (Auto) Baso # (Auto) Absolute Nucleated RBC Nucleated RBC % (auto) Smudge Cells Peripher Smr Path Cons Sodium Potassium Chloride Carbon Dioxide Anion Gap BUN Creatinine Est Cr Clr Drug Dosing Est GFR ( Amer) Est GFR (Non-Af Amer) BUN/Creatinine Ratio Glucose POC Glucose 249 H Estimat Average Glucose Hemoglobin A1c Calcium Total Bilirubin AST ALT Alkaline Phosphatase Troponin I < 0.015 Total Protein Albumin Globulin Albumin/Globulin Ratio Triglycerides Cholesterol LDL Cholesterol, Calc VLDL Cholesterol, Calc HDL Cholesterol Cholesterol/HDL Ratio Hepatitis C Ab Screen Flow Cytometry Comment Pending 01/06/19 01/06/19 01/06/19 00:14 05:30 05:30 WBC 10.59 RBC 4.27 L Hgb 13.2 L Hct 37.0 L MCV 86.7 MCH 30.9 MCHC 35.7 RDW Std Deviation 43.4 RDW Coeff of Rolo 13.8 Plt Count 108 L MPV 11.2 H Immature Gran % (Auto) 0.4 Neut % (Auto) 17.6 Lymph % (Auto) 74.7 [place] % (Auto) 6.5 Eos % (Auto) 0.3 Baso % (Auto) 0.5 Immature Gran # (Auto) 0.04 H Neut # (Auto) 1.87 Lymph # (Auto) 7.91 H [place] # (Auto) 0.69 H Eos # (Auto) 0.03 Baso # (Auto) 0.05 Absolute Nucleated RBC 0.07 H Nucleated RBC % (auto) 0.6 Smudge Cells Present Peripher Smr Path Cons Sodium 134 L Potassium 4.1 Chloride 104 Carbon Dioxide 26 Anion Gap 4.0 BUN 12 Creatinine 0.97 Est Cr Clr Drug Dosing 105.3 Est GFR ( Amer) 100.0 Est GFR (Non-Af Amer) 86.3 BUN/Creatinine Ratio 12.7 Glucose 251 H POC Glucose Estimat Average Glucose Hemoglobin A1c Calcium 8.5 Total Bilirubin 1.1 H AST 21 ALT 29 Alkaline Phosphatase 90 Troponin I < 0.015 Total Protein 7.1 Albumin 3.0 L Globulin 4.1 H Albumin/Globulin Ratio 0.7 L Triglycerides 302 H Cholesterol 63 LDL Cholesterol, Calc TNP VLDL Cholesterol, Calc 60 HDL Cholesterol 8 Cholesterol/HDL Ratio 8 Hepatitis C Ab Screen Flow Cytometry Comment 01/06/19 01/06/19 01/06/19 05:30 05:30 06:10 WBC RBC Hgb Hct MCV MCH MCHC RDW Std Deviation RDW Coeff of Rolo Plt Count MPV Immature Gran % (Auto) Neut % (Auto) Lymph % (Auto) [place] % (Auto) Eos % (Auto) Baso % (Auto) Immature Gran # (Auto) Neut # (Auto) Lymph # (Auto) [place] # (Auto) Eos # (Auto) Baso # (Auto) Absolute Nucleated RBC Nucleated RBC % (auto) Smudge Cells Peripher Smr Path Cons Sodium Potassium Chloride Carbon Dioxide Anion Gap BUN Creatinine Est Cr Clr Drug Dosing Est GFR ( Amer) Est GFR (Non-Af Amer) BUN/Creatinine Ratio Glucose POC Glucose 308 H* Estimat Average Glucose 249 Hemoglobin A1c 10.3 H Calcium Total Bilirubin AST ALT Alkaline Phosphatase Troponin I Total Protein Albumin Globulin Albumin/Globulin Ratio Triglycerides Cholesterol LDL Cholesterol, Calc VLDL Cholesterol, Calc HDL Cholesterol Cholesterol/HDL Ratio Hepatitis C Ab Screen Neg Flow Cytometry Comment 01/06/19 01/06/19 01/06/19 06:12 06:13 07:29 WBC RBC Hgb Hct MCV MCH MCHC RDW Std Deviation RDW Coeff of Rolo Plt Count MPV Immature Gran % (Auto) Neut % (Auto) Lymph % (Auto) [place] % (Auto) Eos % (Auto) Baso % (Auto) Immature Gran # (Auto) Neut # (Auto) Lymph # (Auto) [place] # (Auto) Eos # (Auto) Baso # (Auto) Absolute Nucleated RBC Nucleated RBC % (auto) Smudge Cells Peripher Smr Path Cons Sodium Potassium Chloride Carbon Dioxide Anion Gap BUN Creatinine Est Cr Clr Drug Dosing Est GFR ( Amer) Est GFR (Non-Af Amer) BUN/Creatinine Ratio Glucose POC Glucose 270 H 291 H 314 H* Estimat Average Glucose Hemoglobin A1c Calcium Total Bilirubin AST ALT Alkaline Phosphatase Troponin I Total Protein Albumin Globulin Albumin/Globulin Ratio Triglycerides Cholesterol LDL Cholesterol, Calc VLDL Cholesterol, Calc HDL Cholesterol Cholesterol/HDL Ratio Hepatitis C Ab Screen Flow Cytometry Comment 01/06/19 01/06/19 01/06/19 07:29 07:31 11:40 WBC RBC Hgb Hct MCV MCH MCHC RDW Std Deviation RDW Coeff of Rolo Plt Count MPV Immature Gran % (Auto) Neut % (Auto) Lymph % (Auto) [place] % (Auto) Eos % (Auto) Baso % (Auto) Immature Gran # (Auto) Neut # (Auto) Lymph # (Auto) [place] # (Auto) Eos # (Auto) Baso # (Auto) Absolute Nucleated RBC Nucleated RBC % (auto) Smudge Cells Peripher Smr Path Cons Sodium Potassium Chloride Carbon Dioxide Anion Gap BUN Creatinine Est Cr Clr Drug Dosing Est GFR ( Amer) Est GFR (Non-Af Amer) BUN/Creatinine Ratio Glucose POC Glucose 280 H 284 H 284 H Estimat Average Glucose Hemoglobin A1c Calcium Total Bilirubin AST ALT Alkaline Phosphatase Troponin I Total Protein Albumin Globulin Albumin/Globulin Ratio Triglycerides Cholesterol LDL Cholesterol, Calc VLDL Cholesterol, Calc HDL Cholesterol Cholesterol/HDL Ratio Hepatitis C Ab Screen Flow Cytometry Comment Medications Administered Current Inpatient Medications Acetaminophen (Tylenol) 650 mg PO Q4H PRN PRN Reason: Pain or Fever Stop: 02/04/19 19:05 Al Hydrox/Mg Hydrox/Simethicone (Maalox) 15 ml PO Q4H PRN PRN Reason: Dyspepsia Stop: 02/04/19 19:05 Aspirin (Ecotrin Ectab) 81 mg PO HS [facility] Stop: 02/04/19 20:59 Last Admin: 01/05/19 20:55 Dose: 81 mg Documented by: Carvedilol (Coreg) 12.5 mg PO BID [facility] Stop: 02/04/19 20:59 Last Admin: 01/06/19 08:06 Dose: 12.5 mg Documented by: Cyanocobalamin (Vitamin B-12) 1,000 mcg PO HS [facility] Stop: 02/04/19 20:59 Last Admin: 01/05/19 20:55 Dose: 1,000 mcg Documented by: Dextrose (Dextrose 50%) 25 - 50 ml IV UD PRN; Protocol PRN Reason: Hypoglycemia Protocol Stop: 02/04/19 19:05 Fenofibrate (Tricor) 145 mg PO QDD [facility] Stop: 02/05/19 16:29 Glucagon (Glucagen) 1 mg SQ UD PRN; Protocol PRN Reason: Hypoglycemia Protocol Stop: 02/04/19 19:05 Glucose (Dex4 Glucose) 4 - 8 tabs PO UD PRN; Protocol PRN Reason: Hypoglycemia Protocol Stop: 02/04/19 19:05 Glucose (Glucose 40%) 15 - 30 gm PO UD PRN; Protocol PRN Reason: Hypoglycemia Protocol Stop: 02/04/19 19:05 Insulin Aspart (Novolog Flexpen) 0 units SC ACHS [facility] Stop: 02/05/19 06:49 Last Admin: 01/06/19 12:23 Dose: 8 units Documented by: Insulin Glargine (Lantus Solostar Pen) 0 units SC BID [facility]; Protocol Stop: 02/05/19 20:59 Lisinopril (Zestril) 10 mg PO [facility] Stop: 02/05/19 08:59 Last Admin: 01/06/19 08:07 Dose: 10 mg Documented by: Magnesium Hydroxide (Milk Of Magnesia) 30 ml PO Q12H PRN PRN Reason: Constipation Stop: 02/04/19 19:05 Miscellaneous (Carbohydrates For Hypoglycemia) 15 - 30 gm PO UD PRN PRN Reason: Hypoglycemia Protocol Stop: 02/04/19 19:05 Miscellaneous (Remove Nicoderm Patch) 1 ea N/A HS PRN PRN Reason: Insomnia Stop: 02/05/19 08:58 Nicotine (Nicoderm Cq) 14 mg TD [facility] Stop: 02/05/19 08:59 Last Admin: 01/06/19 10:48 Dose: Not Given Documented by: Nitroglycerin (Nitrostat) 0.4 mg SL UD PRN PRN Reason: Chest Pain Stop: 02/04/19 19:05 Ondansetron HCl (Zofran) 4 mg IV Q6H PRN PRN Reason: Nausea Stop: 02/04/19 19:05 Pantoprazole Sodium (Protonix) 40 mg PO [facility] Stop: 02/05/19 08:59 Last Admin: 01/06/19 08:06 Dose: 40 mg Documented by: Polyethylene Glycol (Miralax Powder Packet) 17 gm PO DAILY PRN PRN Reason: Constipation Stop: 02/04/19 19:05 Pravastatin Sodium (Pravachol) 20 mg PO [facility] Stop: 02/05/19 08:59 Last Admin: 01/06/19 08:07 Dose: 20 mg Documented by: Vitamin D (Vitamin D3) [facility] [place]: 02/05/19 08:59 Last Admin: 01/06/19 08:07 Dose: 2,000 units Documented by: (1) Chest pain Chest pain type: unspecified Qualified Code(s): R07.9 - Chest pain, unspecified
[2019-01-06] MEDS ORDERED: ADENOSINE IV SOLN 3 MG/ML 20 ML VIAL IV ONE (15:34)
[2019-01-06] MEDS ORDERED: FENOFIBRATE NANOCRYSTALLIZED 145 MG TABLET PO SCH (16:30)
--- NOTE | 2019-01-06 16:39 | Pre Anesthesia Assessment ---
Date of Service January 06, 2019 Pre Sedation Assessment Vital Signs Temp Pulse Pulse Resp BP Pulse Ox 01/06/19 16:20 81 17 125/64 94 01/06/19 16:15 81 17 104/60 92 01/06/19 16:10 85 17 121/68 92 01/06/19 16:05 81 17 123/64 93 01/06/19 11:17 81 01/06/19 11:01 98.1 F 78 18 100/65 96 01/06/19 07:11 98.1 F 83 18 120/69 95 01/06/19 03:49 98.6 F 74 18 107/68 97 01/05/19 23:38 99.1 F 83 18 102/61 96 01/05/19 18:56 98.4 F 20 122/73 94 01/05/19 17:00 84 20 124/80 97 Cardiovascular RRR, no murmur, no edema Respiratory normal respiratory effort, lungs clear to auscultation Pre-Sedation Airway Assessment Smoking Status: Current every day smoker Hx Sleep Apnea: No Hx Difficult Intubation: No Short, Thick Neck: No Thyromental Distance: > or= 3.5 Finger Breadths Oral Cavity: + WNL Mallampati Class: III ASA: ASA2 NPO Status Date of Last Intake of Fluids: 01/06/19 Time of Last Intake of Fluids: 11:30 Date of Last Intake of Solid Food: 01/06/19 Time of Last Intake of Solid Foods: 11:30 Procedure Planning Contraindications for Sedation: none Current Medications Reviewed: Yes Notes The planned sedation has been discussed with the patient. Informed Consent was obtained. I have identified the patient, determined the appropriateness of sedation and have assessed the patient immediately prior to the procedure. All medicine(s) and interventions are by my order.
--- NOTE | 2019-01-06 16:39 | Post Anesthesia Assessment ---
Date of Service January 06, 2019 Post Sedation Assessment Vital Signs Temp Pulse Pulse Resp BP Pulse Ox 01/06/19 16:20 81 17 125/64 94 01/06/19 16:15 81 17 104/60 92 01/06/19 16:10 85 17 121/68 92 01/06/19 16:05 81 17 123/64 93 01/06/19 11:17 81 01/06/19 11:01 98.1 F 78 18 100/65 96 01/06/19 07:11 98.1 F 83 18 120/69 95 01/06/19 03:49 98.6 F 74 18 107/68 97 01/05/19 23:38 99.1 F 83 18 102/61 96 01/05/19 18:56 98.4 F 20 122/73 94 01/05/19 17:00 84 20 124/80 97 Recovery Score Activity: Moves 4 extremities Respiration: Deep Breath/Cough Circulation: +/-20% PreAnes Value Consciousness: Fully Awake Oxygen Saturation: > 92% On Room Air Post Anesthesia Score: 10 Discharge Sedation Level of Care: Fast Track Phase II Post Sedation Plan On clinical assessment, the patient appears to have tolerated the sedation without complications. Patient is recovering as anticipated. Patient will continue to be monitored by nursing and may be discharged when sedation discharge criteria are met per below protocol. Upon Completions of procedure up to 15 minutes continue every 5 minute vital signs and the P.A.R. score; then discharge to a Phase I or Fast Track to Phase II per the following guidelines: * Discharge Patient to appropriate Phase II area if PAR is 8 or greater or return to pre- procedure baseline. The post - procedure orders will be as directed. * If PAR score is less than 8 or not return to pre-procedure baseline then patient will follow Phase I monitoring till PAR is reached for Phase II. The Phase I may be done in procedure room or may call to secure a Phase I area. * If naloxone or flumazenil are used for reversal, hold in Phase I for continued monitoring from when last reversal dose was given for a minimum of 60 minutes or longer pending the nurse and/or physician discretion of patient condition before discharge to Phase II. Please call the Sedation Physician to re-evaluate and complete post-note for discharge to Phase II area. Do NOT discharge from procedure sedation or Phase 1 until post- sedation evaluation note is complete by procedure /sedation MD Sedation Discharge Instructions to be given to the patient at discharge to home.
--- NOTE | 2019-01-06 16:53 | Cardiac Catheterization ---
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 Cardiac Status Clinical evaluation leading to the procedure CAD Presenation: Sx unlikely to be ischemic Anginal Classification: CCS III Heart Failure: No Cardiogenic Shock within 24 Hours: No Cardiac Arrest within 24 Hours: No Imaging Studies Past 6 Months: Yes Stress Studies Past 6 Months: No Diagnostic Physicians Name: Ronald Ashton MD Status: Elective Closure Device Percutaneous Entry Location: Radial Closure Device: Radial Band Recommendations: Medical Therapy and/or Counseling Intraprocedure Events Significant Disection: No Perforation: No Cardiac Cath Procedure Full Procedure Date January 06, 2019 Pre-Procedure Diagnosis Pre-Procedure Diagnosis: Cardiomyopathy and Cardiothoracic Symptom (chest pain) AUC Score AUC Score: 7 Post-Procedure Diagnosis Post-Procedure Diagnosis: Severe CAD and Normal Intracardiac Pressures Procedure(s) Performed Procedure(s) Performed: Coronary Angiography, Left Heart Cath and Fractional Flow [place] [employer] Operator Ronald Ashton MD Agriculture Instructor(s) Yudy Estimated Blood Loss Estimated Blood Loss: 5 Medication(s) Medication(s): Fentanyl, Heparin, Lidocaine 1%, Nicardipine, Nitroglycerin and Versed Summary of Findings Indication: Chest pain, new LV dysfunction Access: 6 Fr slender right radial artery Catheters: Frederick, pigtail, EBU 3.5 guide Findings: LM -luminal irregularities LAD -moderate caliber vessel, proximal luminal irregularities, 60 to 70% mid segment disease across takeoff of second diagonal, distal LAD small with luminal irregularities and sluggish flow. Moderate caliber second diagonal with luminal irregularities. Circumflex -large caliber vessel, 20% ostial stenosis. Moderate caliber second OM with 30% ostial stenosis. RCA -large caliber vessel, dominant, 30% mid segment disease, distal luminal irregularities. PDA, PLB's without significant disease. LVEDP - 13 FFR of mid LAD Anticoagulation with heparin Left main cannulated with EBU 3.5 guide BMW wire placed into distal LAD ACIST FFR catheter placed into distal LAD Pd/Pa 0.87 FFR 0.69 Post procedure angiography revealed no apparent complications Arterial Closure: TR band Summary: 1. Severe single-vessel coronary artery disease -60 to 70% mid LAD stenosis at bifurcation of second diagonal (FFR 0.69). 2. Normal intracardiac filling pressure Recommendations: Case discussed with patient's primary advance scout Dr. Augusto. At this point patient minimally symptomatic on no cardiac medications. Plan to start guideline directed medical therapy for patient's cardiomyopathy which appears out of proportion to his coronary artery disease. Continue ASCVD risk factor modification including smoking cessation. If refractory symptoms in the future mid LAD stenosis appears amenable to PCI. Hemodynamics Rest Ao:: 87// Final Ao: 96/56/ LV: 92/13 Recommendations Recommendations: Medical Therapy and/or Counseling Specimens Specimens: None Radiation Exposure (mGy) 1600 Contrast (mls) 70 Fluids (cc crystalloids) Fluids (cc crystalloids): 300 Drains Drains: none Anesthesia moderate Procedural Complication(s) None Disposition PCU I attest to the content of the Intraoperative Record and any orders documented therein. Any exceptions are noted below.
[2019-01-06] MEDS ORDERED: SODIUM CHLORIDE 0.9% 1000ML 1,000 ML IV SCH (17:00)
[2019-01-06] MEDS ORDERED: PHARMACY GLYCEMIC MGMT CONSULT PRN (18:33)
--- NOTE | 2019-01-06 19:00 | Pharmacy Report ---
Glycemic Control Consultation - Date of Service January 06, 2019 - Scope Scope: Glycemic Pharmacist consulted by Dr Keen on 01/06 for glycemic control and to write orders per [facility] inpatient glycemic control protocol - Objective Weight: 105.1 kg Accuchecks BSG (last 24hrs): 01/05/19 01/06/19 01/06/19 19:13 05:30 06:10 Glucose 251 H POC Glucose 249 H 308 H* 01/06/19 01/06/19 01/06/19 06:12 06:13 07:29 Glucose POC Glucose 270 H 291 H 314 H* 01/06/19 01/06/19 01/06/19 07:29 07:31 11:40 Glucose POC Glucose 280 H 284 H 284 H 01/06/19 16:58 Glucose POC Glucose 257 H Laboratory Data (last 24hrs): 01/06/19 05:30 Potassium 4.1 Carbon Dioxide 26 Anion Gap 4.0 Creatinine 0.97 Est Cr Clr Drug Dosing 105.3 HbA1c: Hemoglobin A1c 10.3 % (4.5-5.6) H 01/06/19 05:30 - Recent Pertinent Medications Outpatient Anti-diabetic Regimen: * Metformin 1000mg PO BID * Glimepiride 4mg PO daily * A1c = 10.3 % 01/06/19 The patient is currently receiving: * Basal insulin: Lantus 10 units every 12 hours * Correctional Insulin: Novolog Correction per scale ACHS Goal Range: Low 140 mg/dL - High 180 mg/dL Correction Factor: 25 mg/dL/unit * Prandial insulin: Per carb ratio of 1 unit per 15 grams CHO consumed * Oral Agents: On hold Risk Factors for Insulin Resistance: * Recent Surgery: s/p cardiac cath today * Diet: Type 2 DM - Assessment & Plan Assessment & Plan: ASSESSMENT: * 58 year old admitted with chest pain yesterday, s/p cardiac cath today. * Type 2 diabetic managed on oral medications at home, A1c 10.3%, indicates patient needs injectable therapy, discharge recommendations to follow after insulin needs as inpatient determined. * Oral agents are not recommended for inpatient use d/t drug interactions, changing PO intake, and difficulty titrating for acute hyper/hypoglycemia. ADA recommends re-initiating outpatient oral agents 1-2 days prior to discharge if/when appropriate if they were held on admission. * Will continue to hold oral agents for admission and utilize SQ basal bolus insulin regimen which is the recommended regimen for inpatient glycemic control. * Patient's blood sugars in 200s on current doses of Lantus and Novolog, will titrate doses up and monitor blood sugars * ADA & AACE recommend a goal blood sugar range 140-180 mg/dl for the majority of critically ill & non-critically ill patients. However, more stringent targets may be selected in individual cases. Will utilize more stringent goal of 110-140mg/dl based on patient age & comorbidities. Additionally, tighter glycemic control is warranted to facilitate wound/infection healing. PLAN FOR INPATIENT GLYCEMIC CONTROL: * Holding outpatient oral diabetes medications * Basal insulin - INCREASE * Lantus SQ BID * 0 units for BSG < 110mg/dl * 20 units for BSG 110-180mg/dl * 25 units for BSG > 180mg/dl * Bolus insulin * NovoLog per scale ACHS or Q6hrs while NPO * CHANGE: Goal Range: Low 110 mg/dL - High 140 mg/dL * TIGHTEN: Correction Factor: 20 mg/dL/unit * TIGHTEN: Nutritional / Prandial insulin per carb ratio of 1 unit per 7 grams CHO consumed * Please note that the plan above was derived based on current level of insulin resistance and hospital stress. These recommendations are appropriate for inpatient admission only. Plan of care upon discharge will need to be reassessed to avoid potential outpatient hypo/hyperglycemia. Thank you.
[2019-01-06] MEDS: ASPIRIN 81 MG ECTAB PO SCH (21:25)
[2019-01-06] MEDS: CYANOCOBALAMIN 500 MCG TABLET (VITAMIN B-12) PO SCH (21:26)
[2019-01-06] MEDS: INSULIN GLARGINE SOLOSTAR 100 UNITS/ML 3 ML PEN SC SCH (21:27)
[2019-01-07] MEDS: NICOTINE 14 MG/24 HR PATCH TD SCH (07:50)
[2019-01-07] MEDS: carvediloL 12.5 MG TAB PO SCH (07:51)
[2019-01-07] MEDS: CHOLECALCIFEROL 1,000 UNITS TAB PO SCH (07:51)
[2019-01-07] MEDS: PANTOprazole 40 MG TAB PO SCH (07:52)
[2019-01-07] MEDS: LISINOPRIL 10 MG TAB PO SCH (07:52)
[2019-01-07] MEDS: INSULIN GLARGINE SOLOSTAR 100 UNITS/ML 3 ML PEN SC SCH (07:54)
[2019-01-07] MEDS: INSULIN ASPART 100 UNITS/ML 3 ML PEN SC SCH ×2 (07:54→12:07)
[2019-01-07] MEDS ORDERED: INSULIN GLARGINE SOLOSTAR 100 UNITS/ML 3 ML PEN SC ONE (08:00)
[2019-01-07 08:03] VITALS: BP 129/64; TEMP 98.6; O2SAT 98
[2019-01-07] MEDS ORDERED: ROSUVASTATIN CALCIUM 20 MG TAB PO SCH (09:00)
[2019-01-07 09:09] LABS: Hematocrit (blood only) 37.2 % (42-52); Hemoglobin 13.1 g/dL (14.0-18.0); Mean Corpuscular Hemoglobin 31.2 pg (25-34); Mean Corpuscular Hgb Conc 35.2 g/dL (32-36); Mean Corpuscular Volume 88.6 fL (80-100); Platelet Count 120 K/uL (130-400); Platelet Estimate Normal (Normal); RDW Coefficient of Variation 13.8 % (11.5-14.5); RDW Standard Deviation 44.3 fL (36.4-46.3); White Blood Count 10.68 K/uL (4.8-10.8)
[2019-01-07 09:39] LABS: BUN Creatinine Ratio 12.1 (10-20); Calcium 8.8 mg/dl (8.5-10.1); Creatinine Clr Calc Pharmacy 93.7 ml/min; Est GFR (African American) 86.9; Est GFR (Non-African American) 74.9; Potassium 4.1 mmol/L (3.5-5.1)
[2019-01-07 09:53] LABS: Beta-Hydroxybutyrate 1.51 mg/dl (0.2-2.81)
--- NOTE | 2019-01-07 09:54 | Pharmacy Report ---
Pharmacy Glycemic Short Note 2 - Date of Service January 07, 2019 - Glycemic Short BSG Results (Last 24 hours): 01/06/19 01/06/19 01/06/19 11:40 16:58 20:08 POC Glucose 284 H 257 H 257 H 01/07/19 07:28 POC Glucose 248 H OUTPATIENT ANTIDIABETIC REGIMEN: * Metformin 1000mg PO BID * Glimepiride 4mg PO daily * A1c = 10.3 % 01/06/19 The patient is currently receiving: * Basal insulin: Lantus 25 units every 12 hours * Correctional Insulin: Novolog Correction per scale ACHS Goal Range: Low 110 mg/dL - High 140 mg/dL Correction Factor: 15 mg/dL/unit * Prandial insulin: Per carb ratio of 1 unit per 5 grams CHO consumed * Oral Agents: On hold Assessment & Plan: ASSESSMENT: * 58 year old admitted with chest pain, s/p cardiac cath. * Type 2 diabetic managed on oral medications at home, A1c 10.3%, indicates patient needs injectable therapy, discharge recommendations to follow after insulin needs as inpatient determined. * Oral agents on hold for admission- using weight based SQ basal bolus insulin regimen for insulin naive patient * Pt has received 66 units of insulin over the past 24hrs * 35 units of basal insulin {Lantus} * 31 units of bolus insulin {NovoLog} * BSGs 248-284 mg/dl over the past 24hrs * All BSGs elevated - AM fasting and post-prandial. Will increase basal insulin and tighten bolus insulin parameters * Goal is to maintain BSGs <200 mg/dl (ideally <150 mg/dl) to prevent post op complications PLAN FOR INPATIENT GLYCEMIC CONTROL: * Hold outpatient oral diabetes medications * Basal insulin * Lantus 35 units SQ x 1 dose this morning, then, * Lantus 20-25 units SQ BID- dosing based on BSG * BSG <180 mg/dl --> 20 units * BSG 180 mg/dl or above --> 25 units * Bolus insulin: tighten CF/CR * NovoLog per scale ACHS or Q6hrs while NPO * Goal Range: Low 110 mg/dL - High 140 mg/dL * Correction Factor: 15 mg/dL/unit * Nutritional / Prandial insulin per carb ratio of 1 unit per 5 grams CHO consumed
--- NOTE | 2019-01-07 10:42 | Hospitalist Progress Note ---
Date of Service January 07, 2019 Assessment & Plan (1) Chest pain: Cardiomyopathy This is a 58 y/o gentleman with significant past medical history of DM type 2, HTN, HLD, chronic LBBB, tobacco abuse who presents to [facility] ED secondary to chest pain x1 day. He woke up at 4 AM with stabbing left-sided chest pain that radiated to left shoulder. In ED initial EKG revealed chronic LBBB with inferior T wave inversions. Troponin x3 - negative. He received aspirin in ED. He was asymptomatic upon arrival and continues to be without chest pain. Lab work-up was significant for mild elevated WBC 11.47 with predominance in lymphocytes, smudge cell noted and flow cytometry ordered. CMP relatively unremarkable except for hyperglycemia, T bili 1.2, NA 132. Pt with risk factors of HTN, HLD, Tobacco abuse and + FH. Patient was admitted to telemetry and observed overnight, he had no more episodes of chest pain. He had echocardiogram in the morning (01/06), which was abnormal and triggered cardiology consultation/cardiac cath in the afternoon (01/06). Echo: Normal LV chamber size and wall thickness. Moderately reduced LV systolic function, EF 35 to 40%. Abnormal septal wall motion consistent with LBBB gume denise, otherwise mild to moderate global hypokinesis. Grade 1 diastolic dysfunction. No significant valvular pathology. Cardiac cath suumary: There is a lesion in the mid LAD however this does not appear to be an acute ischemic event and was not intervened upon. Cardiology office will call to arrange for outpatient cardiac rehab and outpatient follow-up in 1 month. An echocardiogram will be repeated in 3 months. Continue current regimen of ASA, lisinopril, Coreg, statin (would recommend to switch to high intensity statin however patient says that in the past he could not tolerate it/had severe joint pain) Multiple risk factors for CAD-besides family history, currently poorly controlled diabetes mellitus type 2, hyperlipidemia, active tobacco user, discussed in more detail below (2) Diabetes: - poorly controlled, HbA1c 10.3% (12/06) - on metformin and glimepiride at home - holding outpt meds - Lantus/Novolog per protocol - given risk factors and FH would recommend strict DM control - consulted clinical dental technician, will also involve pharm for glycemic mngmt -Started patient on Basaglar KwikPen insulin, 40 units daily as outpatient -continue his metformin, glimepiride was discontinued (3) LBBB (left bundle branch block): chronic, as above Given LBBB, and cardiomyopathy picture on echocardiogram, cardiology was consulted and patient underwent cardiac catheterization (01/06) (4) Lymphocytosis: new abnormal CBC with elevated absolute lymphocytosis +Smudge cell present Flow cytometry consistent with CLL/SLL - Discussed with Dr. Doyle (heme/onc) who recommends outpt HEME/ONC Follow up/Referral (5) HTN (hypertension): blood pressure controlled on coreg, lisinopril monitor (6) HLD (hyperlipidemia): - will switch from home statin to rosuvastatin on discharge - Fasting lipid panel in a.m. - triglycerides 300, cholesterol 63, VLDL 60, HDL 8 - Discussed hyperlipidemia management, patient says that when he was on high intensity statin, he experienced severe joint pain and could not tolerate it, agreeable to try again (7) Hypertriglyceridemia: - Triglyceride level 1093 on 11/07/18 -Repeated fasting lipid panel, January 06, triglycerides were 300, cholesterol 63, HDL 8 - on fenofibrate and pravastatin 20 mg (reports that he could not tolerate high intensity statin due to joint pain), but agreeable to switch to rosuvastatin and try to see if he can tolerate it (8) Tobacco abuse: -smoking cessation encouraged and nicotine patch ordered -Active smoker, says he plans to quit now after being in the hospital, currently does not feel he needs any supplements or medication to help him quit smoking -Discussed 1 800 quit now line, patient says that he already has their betty on his phone, his already used their services in the past, pt knows his resources however at this point he thinks that he can do this on his own (9) DVT prophylaxis: SCD/TEDS Disposition: home Follow up: PCP Dr. Stockton upon discharge Subjective Yesterday patient underwent echocardiogram, and then following abnormal echo results, he had cardiac cath, which showed lesion in the mid LAD however it did not appear to be an acute ischemic event and was not intervened upon. No changes on telemetry overnight. No acute events overnight either. This morning patient has no chest pain, no shortness of breath, feels well overall. He also denies any fevers, chills, palpitations, abdominal pain, nausea or vomiting. Discussed with seasonal package handler, insulin usage and proper diabetic management. Patient has multiple risk factors for coronary disease, and discussed in detail how to modify these including smoking cessation, diabetes control, hy perlipidemia management. Patient seams to be determined to quit smoking, says he already quit between February and May, he is aware of 1 800 quit now, smoking cessation line, says he already has their betty on the phone and his used their services in the past. Currently he does not wish to use any medication or nicotine patches to help him with smoking cessation, feels that he can do this on his own. Review of Systems Review of Systems: All systems reviewed & are unremarkable except as noted in HPI & below Constitutional: no fever and no chills Respiratory: no cough, no dyspnea and no pain on inspiration Cardiovascular: no chest pain, no dyspnea on exertion, no palpitations and no edema Gastrointestinal: no abdominal pain, no nausea and no vomiting Physical Exam Physical Exam: Constitutional: WD/WN male in NAD, sitting in the chair, comfortable Head: Normocephalic, Atraumatic Eyes: PERRL, conjunctivae normal, anicteric sclerae ENMT: external ear and nose normal, oropharynx normal Neck: trachea midline, normal visual inspection Respiratory: normal respiratory effort, lungs clear to auscultation, no wheeze, rales, rhonchi. Normal insp/exp effort, no accessory muscle use Cardiovascular: RRR, no murmur, no edema Vessels: no JVD or carotid bruit Chest: normal inspection of chest Abdomen: normal bowel sounds, soft, nontender, nondistended, no guarding Musculoskeletal: no cyanosis or clubbing, extremities motor strength 5/5 Skin: no rashes, warm and dry normal turgor Neurologic: PERRL, EOMI, accommodation nl, no face palsy, no dysarthria CN's II-XI intact bilaterally and moves all extremities Psychiatric: A+Ox3, euthymic affect Lymphatic: no cervical or axillary lymphadenopathy Results & Data Vital Signs (Past 12 Hours) Vital Signs Temp Pulse Pulse Resp BP Pulse Ox 01/07/19 08:00 37.0 C 86 20 129/64 98 01/07/19 03:45 36.8 C 82 18 105/70 95 01/07/19 00:53 83 01/06/19 23:19 36.9 C 88 18 107/65 95 Laboratory Results 01/07/19 01/07/19 01/07/19 Range/Units 08:28 08:28 07:28 WBC 10.68 (4.8-10.8) K/uL RBC 4.20 L (4.7-6.1) M/uL Hgb 13.1 L (14.0-18.0) g/dL Hct 37.2 L (42-52) % MCV 88.6 (80-100) fL MCH 31.2 (25-34) pg MCHC 35.2 (32-36) g/dL RDW Std Deviation 44.3 (36.4-46.3) fL RDW Coeff of Rolo 13.8 (11.5-14.5) % Plt Count 120 L (130-400) K/uL MPV 12.0 H (7.4-10.4) fL Platelet Estimate Normal (Normal) Sodium 132 L (136-145) mmol/L Potassium 4.1 (3.5-5.1) mmol/L Chloride 101 (98-107) mmol/L Carbon Dioxide 27 (21-32) mmol/L Anion Gap 5.0 (3-11) BUN 13 (7-18) mg/dl Creatinine 1.09 (0.6-1.4) mg/dl Est Cr Clr Drug Dosing 93.7 ml/min Est GFR ( Amer) 86.9 Est GFR (Non-Af Amer) 74.9 BUN/Creatinine Ratio 12.1 (10-20) Glucose 327 H* (70-99) mg/dl POC Glucose 248 H (70-99) Calcium 8.8 (8.5-10.1) mg/dl Beta-Hydroxybutyric Acd 1.51 (0.2-2.81) mg/dl Flow Cytometry Comment 01/06/19 01/06/19 01/06/19 Range/Units 20:08 16:58 11:40 WBC (4.8-10.8) K/uL RBC (4.7-6.1) M/uL Hgb (14.0-18.0) g/dL Hct (42-52) % MCV (80-100) fL MCH (25-34) pg MCHC (32-36) g/dL RDW Std Deviation (36.4-46.3) fL RDW Coeff of Rolo (11.5-14.5) % Plt Count (130-400) K/uL MPV (7.4-10.4) fL Platelet Estimate (Normal) Sodium (136-145) mmol/L Potassium (3.5-5.1) mmol/L Chloride (98-107) mmol/L Carbon Dioxide (21-32) mmol/L Anion Gap (3-11) BUN (7-18) mg/dl Creatinine (0.6-1.4) mg/dl Est Cr Clr Drug Dosing ml/min Est GFR ( Amer) Est GFR (Non-Af Amer) BUN/Creatinine Ratio (10-20) Glucose (70-99) mg/dl POC Glucose 257 H 257 H 284 H (70-99) Calcium (8.5-10.1) mg/dl Beta-Hydroxybutyric Acd (0.2-2.81) mg/dl Flow Cytometry Comment 01/05/19 Range/Units 12:23 WBC (4.8-10.8) K/uL RBC (4.7-6.1) M/uL Hgb (14.0-18.0) g/dL Hct (42-52) % MCV (80-100) fL MCH (25-34) pg MCHC (32-36) g/dL RDW Std Deviation (36.4-46.3) fL RDW Coeff of Rolo (11.5-14.5) % Plt Count (130-400) K/uL MPV (7.4-10.4) fL Platelet Estimate (Normal) Sodium (136-145) mmol/L Potassium (3.5-5.1) mmol/L Chloride (98-107) mmol/L Carbon Dioxide (21-32) mmol/L Anion Gap (3-11) BUN (7-18) mg/dl Creatinine (0.6-1.4) mg/dl Est Cr Clr Drug Dosing ml/min Est GFR ( Amer) Est GFR (Non-Af Amer) BUN/Creatinine Ratio (10-20) Glucose (70-99) mg/dl POC Glucose (70-99) Calcium (8.5-10.1) mg/dl Beta-Hydroxybutyric Acd (0.2-2.81) mg/dl Flow Cytometry Comment See Comment CLL/SLL Medications Administered Current Inpatient Medications Acetaminophen (Tylenol) 650 mg PO Q4H PRN PRN Reason: Pain or Fever Stop: 02/04/19 19:05 Al Hydrox/Mg Hydrox/Simethicone (Maalox) 15 ml PO Q4H PRN PRN Reason: Dyspepsia Stop: 02/04/19 19:05 Aspirin (Ecotrin Ectab) 81 mg PO HS [facility] Stop: 02/04/19 20:59 Last Admin: 01/06/19 21:25 Dose: 81 mg Documented by: Carvedilol (Coreg) 12.5 mg PO BID [facility] Stop: 02/04/19 20:59 Last Admin: 01/07/19 07:51 Dose: 12.5 mg Documented by: Cyanocobalamin (Vitamin B-12) 1,000 mcg PO HS [facility] Stop: 02/04/19 20:59 Last Admin: 01/06/19 21:26 Dose: 1,000 mcg Documented by: Dextrose (Dextrose 50%) 25 - 50 ml IV UD PRN; Protocol PRN Reason: Hypoglycemia Protocol Stop: 02/04/19 19:05 Fenofibrate (Tricor) 145 mg PO QDD [facility] Stop: 02/05/19 16:29 Last Admin: 01/06/19 17:29 Dose: 145 mg Documented by: Glucagon (Glucagen) 1 mg SQ UD PRN; Protocol PRN Reason: Hypoglycemia Protocol Stop: 02/04/19 19:05 Glucose (Dex4 Glucose) 4 - 8 tabs PO UD PRN; Protocol PRN Reason: Hypoglycemia Protocol Stop: 02/04/19 19:05 Glucose (Glucose 40%) 15 - 30 gm PO UD PRN; Protocol PRN Reason: Hypoglycemia Protocol Stop: 02/04/19 19:05 Insulin Aspart (Novolog Flexpen) 0 units SC ACHS [facility]; Protocol Stop: 02/05/19 06:49 Last Admin: 01/07/19 07:54 Dose: 13 units Documented by: Insulin Glargine (Lantus Solostar Pen) 0 units SC BID [facility]; Protocol Stop: 02/05/19 20:59 Last Admin: 01/07/19 07:54 Dose: 25 units Documented by: Lisinopril (Zestril) 10 mg PO QAM [facility] Stop: 02/05/19 08:59 Last Admin: 01/07/19 07:52 Dose: 10 mg Documented by: Magnesium Hydroxide (Milk Of Magnesia) 30 ml PO Q12H PRN PRN Reason: Constipation Stop: 02/04/19 19:05 Miscellaneous (Carbohydrates For Hypoglycemia) 15 - 30 gm PO UD PRN PRN Reason: Hypoglycemia Protocol Stop: 02/04/19 19:05 Miscellaneous (Remove Nicoderm Patch) 1 ea N/A HS PRN PRN Reason: Insomnia Stop: 02/05/19 08:58 Miscellaneous Information (Consult Glycemic Management Pharmacy) 1 ea N/A UD PRN PRN Reason: Consult Stop: 02/05/19 18:32 [facility] ([facility] C[facility]) [facility] [place]: 02/05/19 08:59 Last Admin: 01/07/19 07:50 Dose: Not Given Documented by: Nitroglycerin (Nitrostat) 0.4 mg SL UD PRN PRN Reason: Chest Pain Stop: 02/04/19 19:05 Ondansetron HCl (Zofran) 4 mg IV Q6H PRN PRN Reason: Nausea Stop: 02/04/19 19:05 Pantoprazole Sodium ([facility]tonix) [facility] Stop: 02/05/19 08:59 Last Admin: 01/07/19 07:52 Dose: 40 mg Documented by: Polyethylene Glycol (Miralax Powder Packet) 17 gm PO DAILY PRN PRN Reason: Constipation Stop: 02/04/19 19:05 Rosuvastatin Calcium (Crestor) [address] [facility] Stop: 02/06/19 08:59 Last Admin: 01/07/19 07:52 Dose: 20 mg Documented by: Vitamin D (Vitamin D3) 2,[facility] [place]: 02/05/19 08:59 Last Admin: 01/07/19 07:51 Dose: 2,000 units Documented by: (1) Chest pain Chest pain type: unspecified Qualified Code(s): R07.9 - Chest pain, unspecified
--- NOTE | 2019-01-07 11:34 | Discharge Summary ---
Date of Service January 07, 2019 Admission HPI Per Admitting Provider This is a 58-year-old male with significant past medical history of T2 DM, HTN, HLD, chronic LBBB, tobacco abuse who presents to [facility] ED secondary to chest pain x1 day. He elicits he woke up at 4 AM with stabbing left-sided chest pain that radiated to left shoulder. Pain would wax and wane, "sharp jabs," worse with rolling over, 10/10 at its worst, lasted for several minutes, never had in the past, nothing made better. Symptoms resolved within a few minutes, but he was left with a dull left-sided ache. He opted to get out of bed around 6AM and walked around in hopes it would be resolved. Symptoms did not resolve; therefore he opted to not go to work and go back to bed for a few hours. He slept an additional 2 to 3 hours, woke up with continued dull ache. He called PCP who recommended to seek ED. During episodes he also felt diaphoretic and slightly short of breath which had him more concerned. He checked blood sugar which was in 250s. Typically his blood sugars are between 1 60-1 90. He fur ther elicits over the past week he has felt, "not right." Last weekend he was very fatigued doing very little activity which was unusual for him. He denies any recent illness, fever, chills, lightheadedness, dizziness, syncope, chest pain with exertion, shortness of breath with exertion, cough, hemoptysis, nausea, vomiting, abdominal pain, change in bowel or urinary habits. His appetite has otherwise been normal. He has been taking his medications as prescribed. He is a 1 to 2 pack/day smoker for the past 45 years. He does have significant family history of father and brother both having MIs in their 50s. In ED initial EKG revealed chronic LBBB with inferior T wave inversions. Initial troponin WNL. He did receive 3.5 mg aspirin. He was asymptomatic upon arrival and continues to be without chest pain. Lab work-up was significant for mild elevated WBC 11.47 with predominance in lymphocytes, smudge cell noted and flow cytometry ordered. CMP relatively unremarkable except for hyperglycemia, T bili 1.2, NA 132. Pt with risk factors of HTN, HLD, Tobacco abuse and + FH. Admission Exam Per Admitting Provider Constitutional: WD/WN, vitals as above, NAD, sitting up in bed, pleasant, conversing easily Head: Normocephalic, Atraumatic Eyes: PERRL, conjunctivae normal, anicteric sclerae ENMT: external ear and nose normal, oropharynx normal Neck: trachea midline, no thyromegaly normal visual inspection Respiratory: normal respiratory effort, lungs clear to auscultation, no wheeze, rales, rhonchi. Normal insp/exp effort, no accessory muscle use Cardiovascular: RRR, no murmur, no edema Vessels: no JVD or carotid bruit Chest: normal inspection of chest Abdomen: normal bowel sounds, soft, nontender, no hepatosplenomegaly Musculoskeletal: no cyanosis or clubbing, extremities motor strength 5/5 Skin: no rashes, warm and dry normal turgor Neurologic: PERRL, EOMI, accommodation nl, no face palsy, no dysarthria CN's II-XI intact bilaterally and moves all extremities Psychiatric: A+Ox3, euthymic affect Lymphatic: no cervical or axillary lymphadenopathy : deferred Principal Diagnosis Cardiomyopathy, uncontrolled diabetes mellitus type 2, hyperlipidemia, tobacco use Discharge Exam Constitutional: WD/WN male in NAD, sitting in the chair, comfortable Head: Normocephalic, Atraumatic Eyes: PERRL, conjunctivae normal, anicteric sclerae ENMT: external ear and nose normal, oropharynx normal Neck: trachea midline, normal visual inspection Respiratory: normal respiratory effort, lungs clear to auscultation, no wheeze, rales, rhonchi. Normal insp/exp effort, no accessory muscle use Cardiovascular: RRR, no murmur, no edema Vessels: no JVD or carotid bruit Chest: normal inspection of chest Abdomen: normal bowel sounds, soft, nontender, nondistended, no guarding Musculoskeletal: no cyanosis or clubbing, extremities motor strength 5/5 Skin: no rashes, warm and dry normal turgor Neurologic: PERRL, EOMI, accommodation nl, no face palsy, no dysarthria CN's II-XI intact bilaterally and moves all extremities Psychiatric: A+Ox3, euthymic affect Lymphatic: no cervical or axillary lymphadenopathy Discharge Data Allergies Allergy/AdvReac Type Severity Reaction Status Date / Time Sulfa (Sulfonamide AdvReac Intermediate Rash Unverified 01/05/19 13:11 Antibiotics) Consultations 01/05/19 17:01 ED Decision to Admit Stat 01/06/19 12:57 Consult Cardiology Routine 01/06/19 14:11 Consult Cardiac Catheterization Routine Procedures Performed Operation Date: 01/06/19 14:20 Actual Procedures p Cath, Left with Cors and Vent - Mahamed Ashton MD s Cineradiography w/Routine Exam - Mahamed Ashton MD s Fraction Flow [place] SGL Ves - Mahamed Ashton MD Ordered Studies 01/06/19 14:18 CL Cath Imgs for PACS use only Routine Hospital Course (1) Chest pain: Cardiomyopathy This is a 58 y/o gentleman with significant past medical history of DM type 2, HTN, HLD, chronic LBBB, tobacco abuse who presents to [facility] ED secondary to chest pain x1 day. He woke up at 4 AM with stabbing left-sided chest pain that radiated to left shoulder. In ED initial EKG revealed chronic LBBB with inferior T wave inversions. Troponin x3 - negative. He received aspirin in ED. He was asymptomatic upon arrival and continues to be without chest pain. Lab work-up was significant for mild elevated WBC 11.47 with predominance in lymphocytes, smudge cell noted and flow cytometry ordered. CMP relatively unremarkable except for hyperglycemia, T bili 1.2, NA 132. Pt with risk factors of HTN, HLD, Tobacco abuse and + FH. Patient was admitted to telemetry and observed overnight, he had no more episodes of chest pain. He had echocardiogram in the morning (01/06), which was abnormal and triggered cardiology consultation/cardiac cath in the afternoon (01/06). Echo: Normal LV chamber size and wall thickness. Moderately reduced LV systolic function, EF 35 to 40%. Abnormal septal wall motion consistent with LBBB pattern, otherwise mild to moderate global hypokinesis. Grade 1 diastolic dysfunction. No significant valvular pathology. Cardiac cath suumary: There is a lesion in the mid LAD however this does not appear to be an acute ischemic event and was not intervened upon. Cardiology office will call to arrange for outpatient cardiac rehab and outpatient follow-up in 1 month. An echocardiogram will be repeated in 3 months. Continue current regimen of ASA, lisinopril, Coreg, statin (would recommend to switch to high intensity statin however patient says that in the past he could not tolerate it/had severe joint pain) Multiple risk factors for CAD-besides family history, currently poorly controlled diabetes mellitus type 2, hyperlipidemia, active tobacco user, discussed in more detail below (2) Diabetes: - poorly controlled, HbA1c 10.3% (12/06) - on metformin and glimepiride at home - holding outpt meds - Lantus/Novolog per protocol - given risk factors and FH would recommend strict DM control - consulted coding educator, will also involve pharm for glycemic mngmt -Started patient on Basaglar KwikPen insulin, 40 units daily as outpatient -continue his metformin, glimepiride was discontinued (3) LBBB (left bundle branch block): chronic, as above Given LBBB, and cardiomyopathy picture on echocardiogram, cardiology was consulted and patient underwent cardiac catheterization (01/06) (4) Lymphocytosis: new abnormal CBC with elevated absolute lymphocytosis +Smudge cell present Flow cytometry consistent with CLL/SLL - Discussed with Dr. Doyle (heme/onc) who recommends outpt HEME/ONC Follow up/Referral (5) HTN (hypertension): blood pressure controlled on coreg, lisinopril monitor (6) HLD (hyperlipidemia): - will switch from home statin to rosuvastatin on discharge - Fasting lipid panel in a.m. - triglycerides 300, cholesterol 63, VLDL 60, HDL 8 - Discussed hyperlipidemia management, patient says that when he was on high intensity statin, he experienced severe joint pain and could not tolerate it, agreeable to try again (7) Hypertriglyceridemia: - Triglyceride level 1093 on 11/07/18 -Repeated fasting lipid panel, January 06, triglycerides were 300, cholesterol 63, HDL 8 - on fenofibrate and pravastatin 20 mg (reports that he could not tolerate high intensity statin due to joint pain), but agreeable to switch to rosuvastatin and try to see if he can tolerate it (8) Tobacco abuse: -smoking cessation encouraged and nicotine patch ordered -Active smoker, says he plans to quit now after being in the hospital, currently does not feel he needs any supplements or medication to help him quit smoking -Discussed 1 800 quit now line, patient says that he already has their betty on his phone, his already used their services in the past, pt knows his resources however at this point he thinks that he can do this on his own (9) DVT prophylaxis: SCD/TEDS Disposition: home Follow up: PCP Dr. Stockton upon discharge Total Time Total Time Spent Total Time Spent (In Minutes): 45 Total Time Includes: Examination of the Patient, Discharge Planning, Medication Reconciliation and Communication With Other Providers Discharge Plan Discharge Items Patient Disposition: Home - Self-Care Reason For Visit: CHEST PAIN,ABNORMAL CBC Discharge Diagnosis: Cardiomyopathy, uncontrolled diabetes mellitus type 2, hyperlipidemia, tobacco use Activity: Resume your previous activity Activity Comment: as tolerated, pace yourself and ask for help as needed Non-emergency contact: Primary Care Provider and Pot Puller Call non-emergency contact if: you have any medication questions and your symptoms worsen Follow-up/Referrals: Miguel Joseph MD [Primary Care Provider] - Diet: Carb Consistent or DM2 and Heart Healthy Addtl Attending Provider Instructions: Mr Bustos, Start taking 40 units of Basaglar (long-acting insulin) in the morning You should test your blood sugar four times each day. Please keep a record of your blood sugar readings. When first awake before eating breakfast , Before lunch, Before dinner, & Bedtime If your fasting blood sugars in the morning are mostly higher than your target range, then increase your long acting insulin by 2 units every 2 days. Your Max Dose is 50 units until re-evaluated by PCP. Your fasting blood glucose Target Range is 110 - 140 mg/dl. Once you get to the top of your max dose, please do not increase further until you see your PCP. If you have any recurrent low blood sugars please do not increase your insulin dose. Call your provider with any hypoglycemic concerns. Long acting insulin should be taken at the same time every day You will need to follow-up with your primary care provider within 1 week of hospital discharge. You will also follow-up with credit assistant, in 1 month, cardiology office will set the appointment for you, echocardiogram will be repeated in 3 months. Your pravastatin was changed to rosuvastatin. Make sure to follow heart healthy, diabetic diet. Tobacco use cessation is also crucial, please discuss with your primary care provider or call 1 [phone] quit now if you need any further assistance. Pending Studies at Discharge: No Stand-Alone Forms: Call Back Authorization, [facility] [employer], Smoking Cessation Medications and DC Order Prescriptions: New rosuvastatin [Crestor] 20 mg Tablet 20 mg PO QAM 30 Days Qty: 30 RF: 0 acetaminophen [Mapap (acetaminophen)] 325 mg Tablet 650 mg PO Q4H PRN (Reason: pain) 30 Days Qty: 60 RF: 0 Basaglar KwikPen U-100 Insulin 100 unit/mL (3 mL) insulin pen 40 units SQ DAILY 7 Days Qty: 3 RF: 0 Continued carvedilol 12.5 mg tablet 12.5 mg PO BID RF: 0 cyanocobalamin (vitamin B-12) [Vitamin B-12] 1,000 mcg Tablet 1,000 mcg PO HS RF: 0 aspirin 81 mg Tablet,Delayed Release (Dr/Ec) 81 mg PO HS RF: 0 metformin 1,000 mg tablet 1,000 mg PO BIDM RF: 0 lisinopril 10 mg tablet 10 mg PO QAM RF: 0 glimepiride 4 mg tablet 4 mg PO QDB RF: 0 Prilosec OTC 20 mg Tablet,Delayed Release (Dr/Ec) 20 mg PO QAM RF: 0 fenofibrate 160 mg tablet 160 mg PO QDD RF: 0 cholecalciferol (vitamin D3) [Vitamin D3] 2,000 unit Tablet 2,000 unit PO QAM RF: 0 Discontinued meloxicam 15 mg tablet 15 mg PO QAM RF: 0 Potassium 99mg 198 mg PO HS RF: 0 Release 1 cap PO QAM RF: 0 pravastatin 20 mg tablet 20 mg PO QAM RF: 0 Discharge Orders: Discharge Order (Routine); Ordered 01/07/19 Ordered By: Yariel Keen Admission Data Admit Date/Time: 01/07/19 07:43 Attending Provider: Yariel Keen Admit Provider: Millicent Valles Primary Care Provider: Miguel Joseph Other Providers: Millicent Valles ; Jagdish Casas ; Mahamed Ashton Other Interventions: Discharge Summary Assessment (RN) Last Done: 01/07/19 11:39 DC Date/Time DO NOT enter until pt leaves facility: 01/07/19 12:15
[2019-01-07 11:40] VITALS: PULSE 81
== END 2019-01-07 12:15 | disposition home or self-care (01) | DRG 287 ==
LOC: ED 11:53 → 2S 11:53 → SUATTDRO 17:41 → 2S 18:43

== ENCOUNTER 2019-05-03 07:02 | Observation (INO) ==
--- NOTE | 2019-05-02 14:23 | Anesthesiology Consultation ---
Date of Service May 02, 2019 Assessment & Plan (1) Encounter for pre-operative examination: Chart Review Chart Review: Acceptable Risk for Surgery (for ICD implant) and Patient NOT seen in Pre Admission Testing - Check BSG AM DOS Chronic leukocytosis noted on preop labs- hx of CLL- WBC ct relatively stable. Will leave to anesthesia discretion if repeat CBC needed DOS. Last seen by heme 02/10/19= WBC - 21,600. Overal B-cell CLL, no anemia, no thrombocytopenia, no evidence of hemolysis. Repeat CBC in 6 months. Seen by cardio 04/18/19= Referred to EP due to NICM. Was hospitalized in 12/2018 secondary to chest pain- found to have CM with moderate CAD. Blood sugar elevated. Discharged on Entresto. CAD- moderate and non occlusive. NICM EF 30%- remains low on 04/06 ECHO. LBBB x 20 years. Chronic systolic HF. FH of CAD. Recommend BiV ICD. History Surgery Operation Date: 05/03/19 08:00 Proposed Procedures p ICD Biventricular Implant Anesthesia - Deepali Mustafa DO Height/Weight Height: 6 ft Weight: 106.594 kg Allergies Allergy/AdvReac Type Severity Reaction Status Date / Time Sulfa (Sulfonamide AdvReac Intermediate Rash Verified 05/02/19 13:23 Antibiotics) Medications Home Medications Medication Instructions Recorded Confirmed Last Taken Prilosec OTC 20 mg PO QAM 01/05/19 05/02/19 01/05/19 05:00 aspirin 81 mg PO HS 01/05/19 05/02/19 01/04/19 carvedilol 12.5 mg PO BID 01/05/19 05/02/19 01/05/19 05:00 cholecalciferol (vitamin D3) 2,000 unit PO QAM 01/05/19 05/02/19 01/05/19 05:00 [Vitamin D3] cyanocobalamin (vitamin B-12) 1,000 mcg PO HS 01/05/19 05/02/19 01/04/19 [Vitamin B-12] fenofibrate 160 mg PO QDD 01/05/19 05/02/19 01/04/19 lisinopril 10 mg PO QAM 01/05/19 05/02/19 01/05/19 05:00 metformin 1,000 mg PO BIDM 11/05/02/19 01/04/19 05:00 insulin glargine [Basaglar KwikPen 48 unit SUBCUT QPM 05/02/19 05/02/19 Unknown U-100 Insulin] sacubitril-valsartan [Entresto] 1 tab PO BID 05/02/19 05/02/19 Unknown varenicline [Chantix] 1 mg PO BID 05/02/19 05/02/19 Unknown Past Medical History Medical History (Updated 05/02/19 @ 14:46 by Lupe Canas PA-C) CAD (coronary artery disease) 60-70% LAD stenosis- treated medically Cardiomyopathy CHF (congestive heart failure) CLL (chronic lymphocytic leukemia) Follows with heme Diabetes GERD (gastroesophageal reflux disease) History of melanoma Removed from ear HLD (hyperlipidemia) HTN (hypertension) Hypertriglyceridemia LBBB (left bundle branch block) Past Family History Family History Father Heart disease, Onset Age: 50 Brother Coronary heart disease, Onset Age: 50 Past Surgical History Surgical History History of arthroscopy of right knee History of bursectomy History of local excision of skin lesion History of lumbar discectomy Hx of cardiac catheterization 12/2018 [facility] - d/t chest discomfort Hx of LASIK Social History Smoking Status: Former smoker tobacco type: cigarettes Smoking cigarettes per day: 20-40 Smoking End Date: 04/30/2019 Hx Alcohol Use: Yes Alcohol type: beer alcohol intake frequency: holidays/special occasions only Hx Substance Use: No substance use type: does not use Testing Laboratory Results 05/01/19= WBC: 29.93 (hx of CLL- chronic leukocytosis) H/H: 16.0/46.3 PLATELETS: 184 SODIUM: 136 POTASSIUM: 4.6 CHLORIDE: 97 CO2: 26 BUN: 14 CREATININE: 0.9 GLUCOSE: 245 02/28/19 HGB A1C: 6.7 Electrocardiogram Date: 02/06/19 Findings: + NSR @ (64) and + no change from (September 27, 2013) LBBB. Chest X-Ray Date: 01/05/19 Findings: + NAD Echocardiogram Date: 02/24/20 EF: 30-34% LV Function: Moderately reduced Other Findings: + LVH (mild/concentric) Abnormal septal motion consistent with LBBB pattern. Remaining LV wall segments are mildly hypokinetic. Cardiac Catheterization Date: 01/06/19 LMluminal irregularities. LAD60 to 70% stenosis. [id number] to 30% stenosis. RCA30% stenosis. Summary: Severe single-vessel coronary artery disease (60 to 70% mid LAD stenosis of bifurcation of second diagonal). Recommendations: Discussed with outsole cutter machine Dr. Casasat this point patient minimally symptomatic on no cardiac meds. Plan to start guideline directed medical therapy for patient's cardiomyopathy which appears out of proportion to his coronary disease.
[~2019-05-03 07:02] MED LIST: LR 15ML/HR IV SCH
[2019-05-03] MEDS ORDERED: PROPOFOL IV EMULSION 10 MG/ML 100 ML VIAL IV ONE (07:08)
[2019-05-03] MEDS ORDERED: fentaNYL citrate 100 MCG/2 ML VIAL ONE ×3 (07:46→10:21)
[2019-05-03] MEDS ORDERED: LIDOCAINE HCL 1% 20 ML VIAL ONE (07:47)
[2019-05-03] MEDS ORDERED: MIDAZOLAM HCL 1 MG/ML 2ML VIAL ONE ×2 (07:47→08:17)
[2019-05-03] MEDS ORDERED: BUPIVACAINE 0.5 % 5 MG/1 ML PF 10ML VIAL ONE (07:47)
[2019-05-03] MEDS ORDERED: BACITRACIN INJ 50,000 UNIT VIAL ONE (07:48)
[2019-05-03] MEDS ORDERED: CEFAZOLIN 250 MG/ML 1 GM VIAL ONE (07:50)
--- NOTE | 2019-05-03 08:00 | History & Physical Bridge Note ---
Date of Service May 03, 2019 History & Physical Bridge Note I have examined the patient, reviewed the History & Physical and in the interval since the performance of the History & Physical I have noted the following changes of clinical significance: no changes noted
[2019-05-03] MEDS ORDERED: LIDOCAINE HCL 2% 2 ML VIAL/AMP(20MG/ML) INFIL ONE (08:52)
[2019-05-03] MEDS ORDERED: ePHEDrine sulfate 50 MG/ML SYR ONE (09:25)
[2019-05-03] MEDS ORDERED: PHENYLEPHRINE 100MCG/ML 5ML SYR ONE (09:25)
[2019-05-03] MEDS ORDERED: PROPOFOL IV EMULSION 10 MG/ML 20 ML VIAL IV ONE ×2 (10:40→10:59)
--- NOTE | 2019-05-03 11:34 | Operative Report ---
Post Operative Report Pre & Post Diagnosis NICM, LBBB, Chronic systolic HF-NYHA Class III Operation Date: 05/03/19 08:00 <No data on this case meets the specified criteria> I identified the patient and participated in the time-out.: Yes Procedure Operation Date: 05/03/19 08:00 Actual Procedures p ICD Insertion Single or Dual - Deepali Mustafa, s Upgrade of any system to BIV - Deepali Mustafa, s Venogram, Unilateral - Deepali Mustafa, Surgeon Deepali Mustafa, DO Deposition Operator none Estimated Blood Loss 25 Findings Consistent with Post-Op Diagnosis Specimens none Description of Procedure see official report I attest to the content of the Intraoperative Record and any orders documented therein. Any exceptions are noted below.
--- NOTE | 2019-05-03 11:41 | Discharge Summary ---
Date of Service May 04, 2019 Admission HPI Per Admitting Provider Pt admitted for elective BiV ICD Admission Exam Per Admitting Provider aaox3, NAD NC/AT, EOMI Supple No JVD Nrl S1/S2, No murmur CTA b/l no w/r/r soft nt/nd no LE edema b/l skin intact no focal deficits Principal Diagnosis NICM s/p BiV ICD Discharge Exam aaox3, NAD NC/AT, EOMI Supple No JVD Nrl S1/S2, No murmur CTA b/l no w/r/r soft nt/nd no LE edema b/l skin intact no focal deficits left pectoral incision intact, no hematoma mild ecchymosis Discharge Data Allergies Allergy/AdvReac Type Severity Reaction Status Date / Time Sulfa (Sulfonamide AdvReac Intermediate Rash Verified 05/02/19 13:23 Antibiotics) Procedures Performed Operation Date: 05/03/19 08:00 Actual Procedures p ICD Insertion Single or Dual - Deepali Mustafa, s Upgrade of any system to BIV - Deepali Mustafa DO s Venogram, Unilateral - Deepali Mustafa DO Ordered Studies CXR: No PTX, leads in position ECG: -BiV paced BiV ICD Interrogation: Normal function stable lead testing since implant 05/03/19 08:15 EP Lab Images for PACS ONCE Hospital Course (1) Chronic systolic congestive heart failure, NYHA class 2: (2) Cardiomyopathy: (3) Hypertriglyceridemia: (4) HLD (hyperlipidemia): (5) HTN (hypertension): (6) LBBB (left bundle branch block): Total Time Total Time Spent Total Time Spent (In Minutes): 35 Total Time Includes: Examination of the Patient, Discharge Planning, Medication Reconciliation and Other Discharge Plan Discharge Items Patient Disposition: Home - Self-Care Reason For Visit: Cardiomyopathy Discharge Diagnosis: NICM s/p BiV ICD Condition on Discharge: Good Activity: As commented below Activity Comment: do not lift the left elbow over the left shoulder for 1 month Lifting: No more than 10 pounds Lifting Comment: do not lift more than 10 pounds with the left arm for 2 weeks Bathing: Keep incision dry Bathing Comment: keep incision dry & dressing on until wound check next week Sexual Activity: After two weeks Non-emergency contact: Vascular Neurologist Call non-emergency contact if: you have any medication questions Follow-up/Referrals: Miguel Joseph MD [Primary Care Provider] - Diet: Heart Healthy Addtl Attending Provider Instructions: Keep dressing on and dry until wound check next week Please look at the device area daily for the next month-if you notice any concerns or swelling call Dr. Mustafa's office immediately Pending Studies at Discharge: No Stand-Alone Forms: [facility] Medications and DC Order Prescriptions: Continued Entresto 24-26 mg Tablet 1 tab PO BID RF: 0 Chantix 1 mg Tablet 1 mg PO BID RF: 0 Basaglar KwikPen U-100 Insulin 100 unit/mL (3 mL) Insulin Pen 48 unit SUBCUT QPM RF: 0 rosuvastatin [Crestor] 20 mg Tablet 20 mg PO DAILY RF: 0 carvedilol 12.5 mg tablet 12.5 mg PO BID RF: 0 cyanocobalamin (vitamin B-12) [Vitamin B-12] 1,000 mcg Tablet 1,000 mcg PO HS RF: 0 aspirin 81 mg Tablet,Delayed Release (Dr/Ec) 81 mg PO HS RF: 0 metformin 1,000 mg tablet 1,000 mg PO BIDM RF: 0 Prilosec OTC 20 mg Tablet,Delayed Release (Dr/Ec) 20 mg PO QAM RF: 0 fenofibrate 160 mg tablet 160 mg PO QDD RF: 0 cholecalciferol (vitamin D3) [Vitamin D3] 2,000 unit Tablet 2,000 unit PO QAM RF: 0 Discharge Orders: Discharge Order (Routine); Ordered 05/04/19 Ordered By: Deepali Mustafa Admission Data Admit Date/Time: 05/03/19 10:48 Attending Provider: Deepali Mustafa Admit Provider: Deepali Mustafa Primary Care Provider: Miguel Joseph
--- NOTE | 2019-05-03 12:00 | Anesthesiology Progress Note ---
Date of Service May 03, 2019 Anesthesia Post Procedure Vital Signs Vital Signs: Temp Pulse Resp BP Pulse Ox 05/03/19 11:50 86 16 101/74 94 05/03/19 11:45 80 16 110/70 94 05/03/19 11:40 82 16 110/70 94 05/03/19 11:35 82 16 102/70 94 05/03/19 07:40 36.8 C 80 16 147/84 H 96 Transfer of Care Handoff Completed per policy Notes Mental Status: alert / awake / arousable and participated in evaluation Patient Amnestic to Procedure: Yes Nausea / Vomiting: adequately controlled Pain: adequately controlled Airway Patency, RR, SpO2: stable & adequate BP & HR: stable & adequate Hydration State: stable & adequate Anesthetic Complications: no major complications apparent and Pt Satisfied with anesthetic care
--- NOTE | 2019-05-03 12:20 | XRay Report ---
XR chest 1V portable HISTORY: Pacemaker placement. COMPARISON: Chest 01/05/2019. FINDINGS: Interval placement of left-sided pacemaker/defibrillator. The leads appear intact. There ar e low lung volumes. A few bibasilar linear densities favor subsegmental atelectasis. No evidence for pulmonary edema. No pneumothorax. IMPRESSION: Interval placement of left-sided pacemaker/defibrillator. No pneumothorax. ACT 112: Negative or not required by law. Electronically signed by: Samuel Valenzuela M.D. 05/03/2019 12:19 PM
[2019-05-03] MEDS ORDERED: OXYCODONE/ACETAMINOPHEN 5mg/325mg TAB PO PRN (12:30)
[2019-05-03] MEDS ORDERED: GLUCOSE 40% GEL 15 GM TUBE PO PRN (13:00)
[2019-05-03] MEDS ORDERED: DEXTROSE 50% 50 ML SYRINGE IV PRN (13:00)
[2019-05-03] MEDS ORDERED: GLUCOSE 10 TABS/TUBE PO PRN (13:00)
[2019-05-03] MEDS ORDERED: CARBOHYDRATES FOR HYPOGLYCEMIA PO PRN (13:00)
[2019-05-03] MEDS ORDERED: GLUCAGON FOR INJ 1 MG VIAL IM PRN (13:00)
[2019-05-03] MEDS: METFORMIN HCL 500 MG TAB PO SCH (16:10)
[2019-05-03] MEDS: ACETAMINOPHEN 325 MG TAB PO PRN ×2 (16:13→20:07)
--- NOTE | 2019-05-03 16:16 | Electrocardiogram Report ---
Test Reason : Blood Pressure : / mmHG Vent. Rate : 081 BPM Atrial Rate : 081 BPM P-R Int : 132 ms QRS Dur : 150 ms QT Int : 442 ms P-R-T Axes : 043 192 017 degrees QTc Int : 513 ms Atrial-sensed ventricular-paced rhythm Abnormal ECG When compared with ECG of 07-JAN-2019 06:41, Ventricular pacing is now present Confirmed by Kai Ashley ([id number]) on 05/03/2019 4:15:40 PM Referred By: Deepali Mustafa Confirmed By:Kai Ashley
[2019-05-03] MEDS ORDERED: FENOFIBRATE NANOCRYSTALLIZED 145 MG TABLET PO SCH (16:30)
--- NOTE | 2019-05-03 18:00 | Operative Report (OR) ---
DATE OF OPERATION: 05/03/2019 PREOPERATIVE DIAGNOSES: Nonischemic cardiomyopathy, chronic systolic heart failure, [place] Heart Association class 3, left bundle branch block. POSTOPERATIVE DIAGNOSES: Nonischemic cardiomyopathy, chronic systolic heart failure, [place] Heart Association class 3, left bundle branch block. PROCEDURE: Biventricular rate responsive permanent pacemaker under fluoroscopic guidance along with a coronary sinus and peripheral venogram. SURGEON: Deepali Mustafa DO. HEAD OF STOCK: None. ANESTHESIA: Monitored anesthetic care administered via Anesthesiology. Please refer to their notes for complete details. Start time was 8:45, end time 11:23. A total of 1700mg of propofol, 6 mg of Versed, 300 mcg of fentanyl. IV FLUIDS: 150 mL. BLOOD LOSS: 25 mL. CONTRAST: 55 mL. ANTIBIOTICS: Two grams of Ancef. CONDITION: Stable. URINE OUTPUT: Not applicable. SPECIMENS: None. FINDINGS: See below. DRAINS: None. INDICATIONS: This is a 58-year-old male who has a past medical history for coronary artery disease, moderate nonocclusive disease by cath in 12/2018; nonischemic cardiomyopathy, ejection fraction 30%, diagnosed in 12/2018, still remained low in 03/2019; left bundle branch block; chronic systolic heart failure, [place] Heart Association class 3; family history of premature coronary artery disease; diabetes; hypertension; hyperlipidemia; tobacco use. 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 He was recommended biventricular defibrillator due to his nonischemic cardiomyopathy, left bundle branch block and heart failure. CONSENT: Consent was obtained prior to the patient going into Electrophysiology Lab. The patient was informed of the risks, benefits and alternative procedure. Risks include but not limited to sudden cardiac ; cardiac arrhythmias; cerebrovascular accident; myocardial infarction; injury to the blood vessels, chamber of the heart, lung; bleeding and infection. The patient understood these risks and agreed to the procedure as planned. Informed consent was obtained. DESCRIPTION OF THE PROCEDURE: The patient was brought into Electrophysiology Lab in a fasting state. He was connected to continuous diagnostic cardiac sonographer. Timeout was performed to ensure patient identity and procedure correctly. He received antibiotics prior to incision. He was prepped and draped over the left infraclavicular space in normal surgical standard fashion. Monitored anesthetic care was given throughout the procedure via Anesthesiology. A 20 mL of 1% lidocaine, bupivacaine mixture were given in the left deltopectoral groove. Incision was made in left deltopectoral groove. Blunt dissection performed down to identify the cephalic vein; however, none could be identified, so a peripheral venogram using 10 mL of IV contrast diluted in 10 mL of saline was performed and 2 separate axillary sticks were obtained without any problems. Guidewire was inserted without any resistance in the more proximal one. An 8-[place]i sheath was inserted over the guidewire. The dilator was removed and a second guidewire was inserted to allow for retained venous access. Then the sheath was removed and a 9.5-[place]i sheath was inserted over one of the guidewires in the more proximal stick. Guidewire and dilator removed and the right ventricular defibrillator lead was advanced into right ventricle and positioned in right ventricular apex under fluoroscopic guidance. There was adequate pacing and sensing thresholds and no diaphragmatic stimulation with high output pacing. The 9.5-Omani sheath was peeled away and lead was fixated to pectoralis muscle using 0 silk suture. The 8-[place]mani sheath was then advanced to the retained guidewire in the proximal axillary stick without any problems. Guidewire and dilator removed. The right atrial lead was then advanced into right atrium and positioned right atrial appendage under fluoroscopic guidance. There was adequate pacing and sensing thresholds and no diaphragmatic stimulation with high output pacing. The 8-[place]mani sheath was peeled away and lead was fixated to pectoralis muscle using 0 silk suture. A 9.5-[place] sheath was then inserted over the more lateral axillary stick without any problems. Guidewire and dilator were removed. Then, the MPX Medtronic coronary sinus outer sheath was advanced into right atrium over a Glidewire. Glidewire and dilator removed. Then, the coronary sinus was cannulated using the GI Trackense Decapolar diagnostic EP catheter. The MPX was advanced over that into the coronary sinus. Then a venogram of the coronary sinus was performed which did show a small posterolateral branch that branched out into two. I was able to wire this. Initially, it was the upper branch of this takeoff and there was some diaphragm, so I opted to try to see if I could wire the bottom takeoff of this branch. I was able to wire it ultimately using an inner 90; however, then when I tried to advance the lead, everything pulled back. I tried one more time without much success. The lead just would not advance much into that, so I ultimately ended up putting it back in the upper branch, but it must have taken a little bit of a different turn because I did not have as much diaphragm. The sheaths were ultimately slit under fluoroscopic guidance and the lead was fixated to pectoralis muscle using 0 silk suture. Of note, while positioning the coronary sinus lead, the right atrial lead had dislodged, so then I went back and repositioned the right atrial lead into the right atrial appendage. A pacemaker defibrillator pocket was created using blunt dissection over the pectoralis muscle within the pectoral fascia. Then the pocket was flushed with copious amounts of bacitracin saline wash and inspected for hemostasis. The pulse generator was then attached to the leads making sure that the pins were in appropriate position, passed set screws and set screws were all tightened. Pulse generator was then placed in the antibiotic pouch making sure that the leads were lying flat beneath the device. Then it was placed inside the pocket making sure that the leads again were lying flat beneath the device. Incision was closed in 3-layer fashion with 2-0 Vicryl interrupted suture followed by 3-0 Vicryl interrupted suture followed by 4-0 Monocryl running stitch and Dermabond was applied. EQUIPMENT: 1. The generator is a [employer] MRI Quad [employer]-D SureScan, [id number], serial number [id number]. 2. Right atrial lead, Medtronic 5076-52 cm, serial number [id number]. 3. Right ventricular lead, Medtronic 6935-62 cm, serial number [id number]. 4. Left ventricular lead, Medtronic 4398-88 cm, serial number [id number]. 5. The Tyrx pouch is reference [id number], lot number [id number], expiration 05/16/2019. INTRAOPERATIVE TESTIN. Right atrial lead: P waves 1.8 millivolts, impedance 694 ohms, threshold 0.7 volts at 0.4 milliseconds. 2. Right ventricular lead: R waves 4.7 millivolts, impedance 563 ohms, threshold 0.3 volts at 0.4 milliseconds. 3. Left ventricular lead programmed LV1-LV2, impedance 913 ohms, threshold 1.2 volts at 0.4 milliseconds and this time there was no diaphragmatic stimulation with high output pacing in that position. FINAL MEASUREMENTS THROUGH THE DEVICE: 1. Right atrial lead: P waves 1.5 millivolts, impedance 532 ohms, threshold 1 volt at 0.4 milliseconds. 2. Right ventricular lead: R waves 4.9 millivolts, impedance 456 ohms, threshold 0.5 volts at 0.4 milliseconds. 3. The RV coil was 88 ohms. 4. Left ventricular lead initially programmed LV1-LV2, impedance 1026 ohms, threshold 1.25 volts at 0.4 milliseconds. There was no diaphragm at 8 volts with 0.4 milliseconds. FINAL PARAMETERS: DDDR 60/130, right atrial and right ventricular amplitude 3.5 volts, pulse width 0.4 milliseconds, sensitivity 0.3 millivolts. Left ventricular amplitude 3.5 volts, pulse width 0.5 milliseconds. The VT monitor zone was 133 beats per minute for 32 detection intervals, VT zone 167 beats per minute for 16 detection intervals and VF zone at 200 beats per minute for 30/40 detection intervals. Of note, once the patient sat up and got into the post recovery room, he did have some diaphragm. It looks like it was more with LV pacing because he did not have any with BiV pacing, so we turned off the LV only pacing and made him BiV pacing. IMPRESSION: Successful implantation of biventricular rate responsive implantable cardiac defibrillator secondary to nonischemic cardiomyopathy, left bundle branch block and chronic systolic heart failure, [place] Heart Association class II. PLAN: Monitor the patient overnight, 12-lead ECG, chest x-ray. He is not allowed to lift left elbow or left shoulder for 1 month. He cannot lift more than 10 pounds with the left arm for 2 weeks. He is to keep the dressing on and dry for the next week until his wound check. He can continue his home medications. I attest to the content of the Intraoperative Record and any orders documented therein. Any exceptions are noted below. RONNIE
[2019-05-03] MEDS: VARENICLINE 1 MG TAB PO SCH (20:06)
[2019-05-03] MEDS: SACUBITRIL-VALSARTAN 24-26 MG TAB PO SCH (20:07)
[2019-05-03] MEDS: carvediloL 12.5 MG TAB PO SCH (20:07)
[2019-05-03] MEDS ORDERED: ASPIRIN 81 MG ECTAB PO SCH (21:00)
[2019-05-03] MEDS ORDERED: INSULIN GLARGINE SOLOSTAR 100 UNITS/ML 3 ML PEN SQ SCH (21:00)
[2019-05-03] MEDS ORDERED: CYANOCOBALAMIN 500 MCG TABLET (VITAMIN B-12) PO SCH (21:00)
--- NOTE | 2019-05-04 06:37 | XRay Report ---
XR chest 2V PA/lateral CLINICAL HISTORY: post biv icd chest pain COMPARISON STUDY: 05/03/2019 FINDINGS: The lungs remain clear. Permanent bipolar cardiac pacemaker/defibrillator in good position. No evidence for pneumothorax. IMPRESSION: No change from the prior date. Pacemaker leads remain in good position. The lungs are cl ear. ACT 112: Negative or not required by law. The above report was generated using voice recognition software. It may contain grammatical, syntax or spelling errors. Electronically signed by: Bam Castañeda M.D. 05/04/2019 6:36 AM
--- NOTE | 2019-05-04 07:22 | Anesthesiology Progress Note ---
Date of Service May 04, 2019 Anesthesia Post Procedure Vital Signs Vital Signs: Temp Pulse Resp BP BP Pulse Ox 05/04/19 03:47 36.6 C 82 17 131/74 95 05/03/19 23:49 36.8 C 73 17 118/74 91 05/03/19 19:44 37.2 C 89 20 146/81 H 95 05/03/19 15:18 37.2 C 96 H 17 123/72 94 05/03/19 11:50 86 16 101/74 94 05/03/19 11:45 80 16 110/70 94 05/03/19 11:40 82 16 110/70 94 05/03/19 11:35 82 16 102/70 94 05/03/19 11:31 36.9 C 84 16 123/81 92 05/03/19 07:40 36.8 C 80 16 147/84 H 96 Pain Intensity Left Chest: Pain Intensity: 3 Notes Mental Status: alert / awake / arousable and participated in evaluation Patient Amnestic to Procedure: Yes Nausea / Vomiting: adequately controlled Pain: adequately controlled Airway Patency, RR, SpO2: stable & adequate BP & HR: stable & adequate Hydration State: stable & adequate Anesthetic Complications: no major complications apparent and Pt Satisfied with anesthetic care
[2019-05-04] MEDS: carvediloL 12.5 MG TAB PO SCH (07:57)
[2019-05-04] MEDS: VARENICLINE 1 MG TAB PO SCH (07:57)
[2019-05-04] MEDS: SACUBITRIL-VALSARTAN 24-26 MG TAB PO SCH (07:57)
[2019-05-04] MEDS: METFORMIN HCL 500 MG TAB PO SCH (07:57)
[2019-05-04] MEDS: ACETAMINOPHEN 325 MG TAB PO PRN (08:01)
[2019-05-04] MEDS ORDERED: ROSUVASTATIN CALCIUM 20 MG TAB PO SCH (09:00)
[2019-05-04] MEDS ORDERED: PANTOprazole 40 MG TAB PO SCH (09:00)
[2019-05-04] MEDS ORDERED: CHOLECALCIFEROL 1,000 UNITS 25 MCG TAB PO SCH (09:00)
== END 2019-05-04 09:19 | disposition home or self-care (01) ==
LOC: EP 07:02 → 2S 07:02
PROC: EPB.ICD (2019-05-03 08:00)